=== PATIENT | male | born 1955 | race Caucasian/White ===

== ENCOUNTER 2018-10-22 10:48 | Emergency (ER) | payer MEDICARE, OTHER ==
[~2018-10-22] VITALS: Ht 172.7 cm; Wt 134.7 kg
[~2018-10-22 10:48] MED LIST: AMLO10 PO; ASCO500 PO; CAND32 PO; CARV25 PO; CARV6.25 PO; CEPH500 PO; CHOL10002 PO; CLIN300 PO; Cleocin HCl150 MG PO; DOXA4 PO; ESOM20 PO; Fiber Tabs625 MG PO; Glucosamine Co1 EAC1 PO; HYDR10 PO; HYDR1TAB94 PO; Hair, Skin & N1 EACH PO; IRBHYD150 PO; MAG PO; MAGOXI400 PO; MICARDIS PO; MULT50L PO; MULVIT PO; MUPI1NAS; Micardis Hct 81 EAC1 PO; NAPR500 PO; NAPR500EC PO; NEBI10 PO; PROBIOTIC1 EAC1 PO; PROBIOTIC1 EAC2 PO; Percocet 5-3251 EACH PO; Tylenol325 MG PO; VITAMIN D PO; Vitamin C100 M1 PO; Vitamin D400 UNI2 PO; Voltaren100 GM TOP; XARELTO10 MG PO; ZOLP10 PO; ZOLP12.5 PO
[2018-10-22] MEDS ORDERED: Doxazosin Mesyla8 MG PO (11:16)
[2018-10-22] MEDS ORDERED: ESOMEPRAZOLE MA40 MG PO (11:16)
[2018-10-22 13:03] LABS: BASOPHILS ABSOLUTE AUTO 0.02 K/mm3 (0.00-0.23); BASOPHILS PERCENT AUTO 0 % (0-2); EOSINOPHILS PERCENT AUTO 1 % (0-6); Hematocrit 34.9 % (37.0-53.0); IMMATURE GRAN ABSOLUTE AUTO 0.02 K/mm3 (0.00-0.10); IMMATURE GRAN PERCENT AUTO 0 % (0-1); LYMPHOCYTES ABSOLUTE AUTO 0.89 K/mm3 (0.84-5.20); LYMPHOCYTES PERCENT AUTO 10 % (21-46); MONOCYTES ABSOLUTE AUTO 1.02 K/mm3 (0.16-1.47); MONOCYTES PERCENT AUTO 11 % (4-13); Mean Corpuscular HGB 30.2 pg (26.0-34.0); Mean Corpuscular HGB Conc 34.4 g/dL (31.5-36.5); Mean Corpuscular Volume 88 fL (80-100); Mean Platelet Volume 10.2 fL (9.1-12.4); NEUTROPHILS PERCENT AUTO 77 % (41-73); Platelet Count 142 K/mm3 (150-400); RDW Coefficient Variation 13.1 % (11.7-14.2); RDW Standard Deviation 42.1 fL (35.1-46.3); Red Blood Cell Count 3.97 M/mm3 (4.30-5.90); White Blood Cell Count 9.05 K/mm3 (4.00-11.30)
[2018-10-22 13:28] LABS: Alanine Aminotransfer (ALT/SGP 32 U/L (12-78); Albumin, Blood 3.6 g/dL (3.4-5.0); Albumin/Globulin Ratio 1.2 (0.8-1.8); Alk Phos 58 U/L (50-136); Anion Gap 7 mmol/L (6-16); Aspartate Aminotrans (AST/SGOT 25 U/L (12-37); Bilirubin, Total 0.9 mg/dL (0.1-1.0); Blood Urea Nitrogen 12 mg/dL (8-24); Bun/Creatinine Ratio 15.4 (12.0-20.0); CO2, Blood 28 mmol/L (21-32); Calcium, Blood 8.5 mg/dL (8.5-10.1); Chloride, Blood 107 mmol/L (98-108); Creatinine, Blood 0.78 mg/dL (0.60-1.20); Glomerular Filtration Rate >60 (60-); Glucose, Blood 104 mg/dL (70-99); Potassium, Blood 3.7 mmol/L (3.5-5.5); Sodium, Blood 142 mmol/L (136-145); Total Protein, Blood 6.6 g/dL (6.4-8.2)
[2018-10-22] MEDS ORDERED: CEPH500 PO (15:30)
[2018-10-23] MEDS ORDERED: Norco 5-325 Ta1 EACH PO (10:24)
== END 2018-10-22 16:16 | disposition home or self-care (01) ==
LOC: ER 10:48
PROVIDERS: Physician Assistant
DX: L03.115 Cellulitis of right lower limb (principal); I10 Essential (primary) hypertension; E78.5 Hyperlipidemia, unspecified; K21.9 Gastro-esophageal reflux disease without esophagitis; Z79.899 Other long term (current) drug therapy
CPT/HCPCS: 36415; 80053; 85025; 93971; 96365; 99284-25; J0878

== ENCOUNTER 2018-10-24 10:04 | Day surgery (SDC) | payer MEDICARE, OTHER ==
[~2018-10-24 10:04] MED LIST changes: +Doxazosin Mesyla8 MG PO; +ESOMEPRAZOLE MA40 MG PO; +Norco 5-325 Ta1 EACH PO
== END 2018-10-24 11:30 | disposition home or self-care (01) ==
LOC: ATC 10:04
DX: L03.115 Cellulitis of right lower limb (principal); I10 Essential (primary) hypertension; E78.5 Hyperlipidemia, unspecified; K21.9 Gastro-esophageal reflux disease without esophagitis; G47.30 Sleep apnea, unspecified; E66.9 Obesity, unspecified; Z88.1 Allergy status to other antibiotic agents; Z79.899 Other long term (current) drug therapy
CPT/HCPCS: 96365; J0878

== ENCOUNTER 2018-10-26 10:06 | Day surgery (SDC) | payer MEDICARE, OTHER ==
[2018-10-27] MEDS ORDERED: Ferrous Sulfat324 MG PO (11:40)
== END 2018-10-26 10:54 | disposition home or self-care (01) ==
LOC: ATC 10:06
DX: L03.115 Cellulitis of right lower limb (principal); I10 Essential (primary) hypertension; K21.9 Gastro-esophageal reflux disease without esophagitis; G47.30 Sleep apnea, unspecified; E78.5 Hyperlipidemia, unspecified; N40.0 Benign prostatic hyperplasia without lower urinary tract symptoms; E66.9 Obesity, unspecified; Z68.41 Body mass index [BMI] 40.0-44.9, adult; Z79.899 Other long term (current) drug therapy; Z99.89 Dependence on other enabling machines and devices; Z88.2 Allergy status to sulfonamides; Z88.1 Allergy status to other antibiotic agents; Z88.8 Allergy status to other drugs, medicaments and biological substances
CPT/HCPCS: J0878

== ENCOUNTER 2018-10-27 11:08 | Day surgery (SDC) | payer MEDICARE, OTHER ==
[2018-10-27] MEDS ORDERED: Ferrous Sulfat324 MG PO (11:40)
== END 2018-10-27 12:12 | disposition home or self-care (01) ==
LOC: ATC 11:08
DX: L03.115 Cellulitis of right lower limb (principal); I10 Essential (primary) hypertension; K21.9 Gastro-esophageal reflux disease without esophagitis; G47.30 Sleep apnea, unspecified; E78.5 Hyperlipidemia, unspecified; Z88.1 Allergy status to other antibiotic agents; Z88.2 Allergy status to sulfonamides; Z79.899 Other long term (current) drug therapy
CPT/HCPCS: J0878

== ENCOUNTER 2018-10-28 11:07 | Day surgery (SDC) | payer MEDICARE, OTHER ==
[~2018-10-28 11:07] MED LIST changes: +Ferrous Sulfat324 MG PO
== END 2018-10-28 22:46 | disposition home or self-care (01) ==
LOC: ATC 11:07
DX: L03.115 Cellulitis of right lower limb (principal); I10 Essential (primary) hypertension; E78.5 Hyperlipidemia, unspecified; K21.9 Gastro-esophageal reflux disease without esophagitis; Z88.1 Allergy status to other antibiotic agents; Z88.2 Allergy status to sulfonamides; Z79.899 Other long term (current) drug therapy
CPT/HCPCS: J0878

== ENCOUNTER 2018-10-29 00:27 | Day surgery (SDC) | payer MEDICARE, OTHER | END 2018-10-29 12:35 | disposition home or self-care (01) | LOC: ATC 00:27 | DX: L03.115 Cellulitis of right lower limb (principal); I10 Essential (primary) hypertension; K21.9 Gastro-esophageal reflux disease without esophagitis; G47.30 Sleep apnea, unspecified; N40.0 Benign prostatic hyperplasia without lower urinary tract symptoms; E78.5 Hyperlipidemia, unspecified; E66.9 Obesity, unspecified; Z88.2 Allergy status to sulfonamides; Z88.1 Allergy status to other antibiotic agents; Z88.8 Allergy status to other drugs, medicaments and biological substances; Z79.899 Other long term (current) drug therapy | CPT/HCPCS: 96365; J0878 ==

== ENCOUNTER 2018-10-30 00:19 | Day surgery (SDC) | payer MEDICARE, OTHER | END 2018-10-30 11:38 | disposition home or self-care (01) | LOC: ATC 00:19 | DX: L03.115 Cellulitis of right lower limb (principal); I10 Essential (primary) hypertension; K21.9 Gastro-esophageal reflux disease without esophagitis; N40.0 Benign prostatic hyperplasia without lower urinary tract symptoms; E78.5 Hyperlipidemia, unspecified; G47.30 Sleep apnea, unspecified; E66.9 Obesity, unspecified; Z88.2 Allergy status to sulfonamides; Z88.1 Allergy status to other antibiotic agents; Z88.8 Allergy status to other drugs, medicaments and biological substances; Z79.899 Other long term (current) drug therapy | CPT/HCPCS: 96365; J0878 ==

== ENCOUNTER 2019-02-24 12:42 | Day surgery (SDC) | payer MEDICARE, OTHER ==
[~2019-02-24] VITALS: Ht 172.7 cm; Wt 138.1 kg
--- NOTE | 2019-02-24 13:38 | NUR ---
02/24/19 1338 Flaquito,Lorraine PT TO RESTROOM
== END 2019-02-24 14:46 | disposition home or self-care (01) ==
LOC: ORSCSDS 12:42
PROVIDERS: Internal Medicine Gastroenterology
PROC: 0DB68ZX Excision of Stomach, Via Natural or Artificial Opening Endoscopic, Diagnostic (ICD-10-PCS; principal; 2019-02-24 14:00)
PROC: 0DB58ZX Excision of Esophagus, Via Natural or Artificial Opening Endoscopic, Diagnostic (ICD-10-PCS; principal; 2019-02-24 14:00)
DX: K21.9 Gastro-esophageal reflux disease without esophagitis (principal); R10.13 Epigastric pain; R68.81 Early satiety; K44.9 Diaphragmatic hernia without obstruction or gangrene; E66.01 Morbid (severe) obesity due to excess calories; Z68.42 Body mass index [BMI] 45.0-49.9, adult; G47.33 Obstructive sleep apnea (adult) (pediatric); I10 Essential (primary) hypertension; Z79.899 Other long term (current) drug therapy
CPT/HCPCS: 87081; 88305; 88342; J2704; J7120

== ENCOUNTER 2019-06-24 06:08 | Day surgery (SDC) | payer MEDICARE, OTHER ==
[~2019-06-24] VITALS: Ht 175.3 cm; Wt 125.9 kg
--- NOTE | 2019-06-24 06:43 | NUR ---
History, Chart, Medications and Allergies reviewed before start of procedure. Patient confirms NPO status and agrees with scheduled surgery. Lungs clear T/O to Auscultation. Pre-Op teaching done. Pt verbalizes understanding. Patient States Post-Procedure ride home has been arranged. NO HEARING DEVICES, DENTURES, JEWELRY OR CONTACTS PRESENT AT ADMIT. PATIENT WILL DECIDE WHAT TO DO WITH HIS GLASSES BEFORE SURGERY.
[2019-06-24] MEDS ORDERED: Flonase 0.05% N16 GM (06:47)
[2019-06-24] MEDS ORDERED: TRAZ50 PO (06:47)
== END 2019-06-24 10:10 | disposition home or self-care (01) ==
LOC: ORSCMMR 06:08 → ORD 07:30 → ORSCMMR 10:10
DX: L72.3 Sebaceous cyst (principal); Z87.891 Personal history of nicotine dependence; I10 Essential (primary) hypertension; G47.33 Obstructive sleep apnea (adult) (pediatric); Z79.899 Other long term (current) drug therapy
CPT/HCPCS: 88304; A9270-GY; J0690; J1100; J2250; J2405; J2704; J3010; J7120

== ENCOUNTER → 2019-07-01 | Outpatient (CLI) | payer MEDICARE, OTHER ==
[~2019-07-01] MED LIST changes: +Flonase 0.05% N16 GM; +TRAZ50 PO
== END ==
LOC: LAB EV 14:45 → LAB SHORT 14:45
DX: G89.29 Other chronic pain (principal); Z79.899 Other long term (current) drug therapy
CPT/HCPCS: G0480

== ENCOUNTER → 2020-08-15 | Outpatient (CLI) | payer MEDICARE, BC, OTHER | END | disposition home or self-care (01) | LOC: LAB SHORT 07:50 → LAB 07:50 | DX: L82.1 Other seborrheic keratosis (principal) | CPT/HCPCS: 88305 ==

== ENCOUNTER → 2020-12-25 | Outpatient (CLI) | payer MEDICARE, BC | END | disposition home or self-care (01) | LOC: LAB 12:10 → LAB SHORT 12:10 | DX: D48.5 Neoplasm of uncertain behavior of skin (principal) | CPT/HCPCS: 88305 ==

== ENCOUNTER 2021-07-17 09:46 | Day surgery (SDC) | payer MEDICARE, BC ==
[~2021-07-17] VITALS: Ht 172.7 cm; Wt 131.3 kg
[~2021-07-17 09:46] MED LIST changes: +IBUP800 PO; +PRAMIPEXOLE PO
[2021-07-17] MEDS ORDERED: MINO2.5 PO (10:13)
[2021-07-17] MEDS ORDERED: AMBIEN10 MG PO (10:19)
--- NOTE | 2021-07-17 11:01 | NUR ---
History, Chart, Medications and Allergies reviewed before start of procedure. Patient confirms NPO status and agrees with scheduled surgery.
--- NOTE | 2021-07-17 11:55 | NUR ---
07/17/21 1155 Jenniffer Childers PATIENT ARRIVED TO OR WITH SKIN IRRITATION, REDNEES AND SKIN ABRASION ON LEFT LEG, NOTIFIED DOCTOR.
--- NOTE | 2021-07-17 14:54 | NUR ---
PT ARRIVED TO UNIT AT APROX 1645 FROM PACU. DRESSING TO R HIP C/D/I, POLAR PACK IN PLACE. PT REPORTS FULL SENSATION TO BLE. REPORTS PAIN TOLERABLE AT 5/10, MEDICATED IN PACU PER EMAR. PT GIVEN CLEAR LIQUIDS AND WILL ADVANCE TOLERATED.
--- NOTE | 2021-07-17 18:35 | NUR ---
SHIFT SUMMARY PT POD 0 R DC. AQUACEL DRESSING TO R HIP C/D/I. POLAR PACK, SCD, ORTIZ HOSE IN PLACE. PT VOIDING W/O DIFFICULTY, TOLERATING PO WITH NO N/V-SALINE LOCKED. PT WORKED WITH THERAPY AND UP TO CHAIR. PAIN TOLERABLE WITH PO PAIN MEDICATION. PLAN TO WORK WITH THERAPY TOMORROW AND DC IF CLEARS.
--- NOTE | 2021-07-18 04:24 | NUR ---
SUMMARY PT DENIES PAIN. PT HAS BEEN AMBULATORY WITH [facility] AND [facility]. PT HAD NO NOTED ISSUES. PT SLEPT WITH CPAP IN PLACE. PT CURRENTLY SLEEPING IN NO DISTRESS. CALL LIGHT IN REACH.
[2021-07-18 04:41] LABS: BASOPHILS PERCENT AUTO 0 % (0-2); EOSINOPHILS PERCENT AUTO 0 % (0-6); Hematocrit 29.4 % (37.0-53.0); Hemoglobin 10.2 g/dL (13.5-17.5); IMMATURE GRAN ABSOLUTE AUTO 0.06 K/mm3 (0.00-0.10); IMMATURE GRAN PERCENT AUTO 0 % (0-1); LYMPHOCYTES ABSOLUTE AUTO 0.68 K/mm3 (0.84-5.20); LYMPHOCYTES PERCENT AUTO 5 % (21-46); MONOCYTES PERCENT AUTO 7 % (4-13); Mean Corpuscular HGB 30.8 pg (26.0-34.0); Mean Corpuscular HGB Conc 34.7 g/dL (31.5-36.5); Mean Corpuscular Volume 89 fL (80-100); Mean Platelet Volume 10.3 fL (9.1-12.4); NEUTROPHILS ABSOLUTE AUTO 12.21 K/mm3 (1.96-9.15); NEUTROPHILS PERCENT AUTO 88 % (41-73); Platelet Count 157 K/mm3 (150-400); RDW Coefficient Variation 11.9 % (11.7-14.2); RDW Standard Deviation 38.8 fL (35.1-46.3); Red Blood Cell Count 3.31 M/mm3 (4.30-5.90); White Blood Cell Count 13.85 K/mm3 (4.00-11.30)
[2021-07-18 04:59] LABS: Anion Gap 6 mmol/L (6-16); Blood Urea Nitrogen 29 mg/dL (8-24); Bun/Creatinine Ratio 31.9 (12.0-20.0); CO2, Blood 26 mmol/L (21-32); Calcium, Blood 8.1 mg/dL (8.5-10.1); Chloride, Blood 105 mmol/L (98-108); Creatinine, Blood 0.91 mg/dL (0.60-1.20); Glomerular Filtration Rate >60 (60-); Glucose, Blood 142 mg/dL (70-99); Potassium, Blood 3.9 mmol/L (3.5-5.5); Sodium, Blood 137 mmol/L (136-145)
[2021-07-18] MEDS ORDERED: ASPI81CH PO (09:24)
[2021-07-18] MEDS ORDERED: Percocet 5-3251 EACH PO (09:25)
--- NOTE | 2021-07-18 13:27 | NUR ---
DISCHARGE: PACKET PRINTED AND PT EDUCATED. IV DC'D WNL, PT GIVEN EXTRA AQUACEL DRESSINGS. PT LEFT UNIT VIA WHEELCHAIR AT ABOUT 1050 WITH GILES NEWMAN
== END 2021-07-18 11:04 | disposition home or self-care (01) ==
LOC: ORSCMMR 09:46 → ORD 12:30 → SURS 14:34 → ORSCMMR 22:48 → SURS 22:48 → ORSCMMR 07-18 11:04
PROVIDERS: Orthopaedic Surgery
PROC: 0SR90JA Replacement of Right Hip Joint with Synthetic Substitute, Uncemented, Open Approach (ICD-10-PCS; principal; 2021-07-17 11:00)
DX: M16.11 Unilateral primary osteoarthritis, right hip (principal); M87.9 Osteonecrosis, unspecified; I10 Essential (primary) hypertension; G47.33 Obstructive sleep apnea (adult) (pediatric); Z87.891 Personal history of nicotine dependence; E66.01 Morbid (severe) obesity due to excess calories; Z68.41 Body mass index [BMI] 40.0-44.9, adult; Z79.899 Other long term (current) drug therapy
CPT/HCPCS: 36415; 72170; 80048; 85025; 97110; 97116; 97162; 97530; A9270; C1713; C1776; J0171; J0690; J0735; J1100; J1885; J2250; J2370; J2405; J2704; J2795; J3010; J3370; J7050; J7120

== ENCOUNTER → 2021-09-13 | Outpatient (CLI) | payer MEDICARE, BC ==
[~2021-09-13] MED LIST changes: +AMBIEN10 MG PO; +ASPI81CH PO; +MINO2.5 PO
== END | disposition home or self-care (01) ==
LOC: LAB 08:15 → LAB SHORT 08:15
DX: R30.9 Painful micturition, unspecified (principal)
CPT/HCPCS: 87077; 87086; 87186

== ENCOUNTER 2022-03-27 02:36 | Inpatient (IN) | payer MEDICARE, BC ==
[~2022-03-27] VITALS: Ht 172.7 cm; Wt 133.3 kg
[~2022-03-27 02:36] MED LIST changes: -Doxazosin Mesyla8 MG PO; +MICARDIS HCT 81 EACH PO; -Micardis Hct 81 EAC1 PO
[2022-03-27 02:52] LABS: BASOPHILS ABSOLUTE AUTO 0.02 K/mm3 (0.00-0.23); BASOPHILS PERCENT AUTO 0 % (0-2); EOSINOPHILS ABSOLUTE AUTO 0.08 K/mm3 (0.00-0.68); EOSINOPHILS PERCENT AUTO 1 % (0-6); Hematocrit 29.4 % (37.0-53.0); Hemoglobin 10.1 g/dL (13.5-17.5); IMMATURE GRAN ABSOLUTE AUTO 0.03 K/mm3 (0.00-0.10); IMMATURE GRAN PERCENT AUTO 0 % (0-1); LYMPHOCYTES ABSOLUTE AUTO 0.69 K/mm3 (0.84-5.20); LYMPHOCYTES PERCENT AUTO 7 % (21-46); MONOCYTES ABSOLUTE AUTO 0.55 K/mm3 (0.16-1.47); MONOCYTES PERCENT AUTO 6 % (4-13); Mean Corpuscular HGB 31.3 pg (26.0-34.0); Mean Corpuscular HGB Conc 34.4 g/dL (31.5-36.5); Mean Corpuscular Volume 91 fL (80-100); Mean Platelet Volume 10.8 fL (9.1-12.4); NEUTROPHILS ABSOLUTE AUTO 8.43 K/mm3 (1.96-9.15); NEUTROPHILS PERCENT AUTO 86 % (41-73); Platelet Count 181 K/mm3 (150-400); RDW Coefficient Variation 14.2 % (11.7-14.2); RDW Standard Deviation 47.5 fL (35.1-46.3); Red Blood Cell Count 3.23 M/mm3 (4.30-5.90)
[2022-03-27] MEDS ORDERED: ZINC15 PO (02:52)
[2022-03-27 03:32] LABS: Albumin, Blood 2.9 g/dL (3.4-5.0); Bilirubin, Total 6.8 mg/dL (0.1-1.0); Bun/Creatinine Ratio 44.9 (12.0-20.0); Calcium, Blood 8.7 mg/dL (8.5-10.1); Creatinine, Blood 0.62 mg/dL (0.60-1.20); Globulin, Blood 2.9 g/dL (2.2-4.0); Potassium, Blood 3.5 mmol/L (3.5-5.5); Total Protein, Blood 5.8 g/dL (6.4-8.2)
[2022-03-27 04:31] LABS: Bilirubin, Direct 5.8 mg/dL (0.0-0.3)
[2022-03-27 04:39] LABS: Source, Urine Clean Catch
[2022-03-27 05:00] LABS: Appearance, Urine Clear (Clear); Blood, Urine Neg (Neg); Color, Urine Amber (P-Yellow); Glucose Qualitative, Urine Neg (Neg); Ketones, Urine 2+ (Neg); Leukocyte Esterase, Urine 1+ (Neg); Nitrite, Urine Neg (Neg); Protein, Urine 1+ (Neg); Specific Gravity, Urine 1.015 (1.003-1.022); Urobilinogen, Urine 1+ (Normal)
[2022-03-27 05:11] LABS: Bilirubin, Urine 2+ (Neg)
[2022-03-27 05:16] LABS: Red Blood Cells, Urine 0-2 /hpf (0-2); Squamous Epithelial Cells Few /hpf (Few); White Blood Cells, Urine 0-2 /hpf (0-5)
[2022-03-27 05:17] LABS: Bacteria Rare /hpf; Mucus Light (0-Heavy)
[2022-03-27 05:43] LABS: International Normalized Ratio 1.09; Prothrombin Time Results 11.4 Sec (9.7-11.5)
[2022-03-27 10:54] LABS: Hematocrit 26.1 % (37.0-53.0); Hemoglobin 9.1 g/dL (13.5-17.5); Mean Corpuscular HGB 31.6 pg (26.0-34.0); Mean Corpuscular HGB Conc 34.9 g/dL (31.5-36.5); Mean Corpuscular Volume 91 fL (80-100); Mean Platelet Volume 10.8 fL (9.1-12.4); Platelet Count 177 K/mm3 (150-400); RDW Standard Deviation 46.2 fL (35.1-46.3); Red Blood Cell Count 2.88 M/mm3 (4.30-5.90); White Blood Cell Count 8.27 K/mm3 (4.00-11.30)
[2022-03-28 03:11] LABS: BASOPHILS ABSOLUTE AUTO 0.03 K/mm3 (0.00-0.23); BASOPHILS PERCENT AUTO 0 % (0-2); EOSINOPHILS ABSOLUTE AUTO 0.07 K/mm3 (0.00-0.68); EOSINOPHILS PERCENT AUTO 1 % (0-6); Hematocrit 24.2 % (37.0-53.0); Hemoglobin 8.4 g/dL (13.5-17.5); IMMATURE GRAN ABSOLUTE AUTO 0.02 K/mm3 (0.00-0.10); IMMATURE GRAN PERCENT AUTO 0 % (0-1); LYMPHOCYTES ABSOLUTE AUTO 1.42 K/mm3 (0.84-5.20); LYMPHOCYTES PERCENT AUTO 17 % (21-46); MONOCYTES PERCENT AUTO 8 % (4-13); Mean Corpuscular HGB 31.7 pg (26.0-34.0); Mean Corpuscular HGB Conc 34.7 g/dL (31.5-36.5); Mean Corpuscular Volume 91 fL (80-100); Mean Platelet Volume 10.7 fL (9.1-12.4); NEUTROPHILS PERCENT AUTO 74 % (41-73); Platelet Count 179 K/mm3 (150-400); RDW Coefficient Variation 14.6 % (11.7-14.2); RDW Standard Deviation 48.9 fL (35.1-46.3); Red Blood Cell Count 2.65 M/mm3 (4.30-5.90); White Blood Cell Count 8.44 K/mm3 (4.00-11.30)
[2022-03-28 03:30] LABS: Albumin/Globulin Ratio 1.1 (0.8-1.8); Bilirubin, Total 6.7 mg/dL (0.1-1.0); Bun/Creatinine Ratio 34.2 (12.0-20.0); Creatinine, Blood 0.7 mg/dL (0.60-1.20); Globulin, Blood 2.7 g/dL (2.2-4.0); Potassium, Blood 3.3 mmol/L (3.5-5.5); Total Protein, Blood 5.7 g/dL (6.4-8.2)
--- NOTE | 2022-03-28 06:37 | NUR ---
CUSTOMER QUALITY SPECIALIST SUMMARY CARY SLEPT REASONABLY WELL UNTIL AROUND 0300 WHEN HE AWOKE WITH WORSENING RESTLESS LEG. HE REQUESTED A NORCO 10/325. WHICH HE CAN HAVE EVERY 5 HOURS PRN (JUST LIKE HOME DOSING PER PATIENTS MEDICATION LIST IN CHART.) HE HAS BEEN NPO SINCE 2300. HE WAS ALLOWED TO HAVE H2O HE WOULDN'T BE ON THE SCHEDULE FOR PLACEMENT OF A BILIARY DRAIN UNTIL THIS MORNING. PATIENT IS ALERT AND ORIENTED X4, OOB INDEPENDENTLY IN ROOM, INFACT TOOK A SHOWER LAST NIGHT WITHOUT DIFFICULTY. SURGICAL PAPERS ARE ON CHART, JUST WAITING FOR AN ORDER TO CONSENT.
[2022-03-28 10:21] LABS: Hematocrit 26.2 % (37.0-53.0); Hemoglobin 8.8 g/dL (13.5-17.5)
--- NOTE | 2022-03-28 16:00 | NUR ---
SHIFT SUMMARY PT ALERT AND ORIENTED, CALLS APPROPRIATELY. PT TO US FOR BILIARY DRAIN PLACEMENT TODAY, TOLERATED. PT C/O PAIN TO SITE, TOLERABLE AT THIS TIME. PT REMAINS ON RA, SPO2 > 92%. NS INFUSING @ 75ML/HR. NO OTHER NEEDS VOICED AT THIS TIME. WILL CONTINUE TO MONITOR. CALL LIGHT WITHIN REACH.
[2022-03-28 18:07] LABS: Hematocrit 28.1 % (37.0-53.0); Hemoglobin 9.1 g/dL (13.5-17.5)
[2022-03-29 03:20] LABS: Hematocrit 28.3 % (37.0-53.0); Hemoglobin 9.8 g/dL (13.5-17.5)
--- NOTE | 2022-03-29 03:50 | NUR ---
Pt A/Ox4 and call light appropriate. This shift pt had poor pain control, oxy was given Q4, MD called for severe break through pain. Orders placed for PRN fetnayl Q4- this was given multiple times. Pt noted even with additional pain medications his pain was still elevated. Pain was noted to be in his RUQ. Biliary drain remains patent. color has ranged from yellow-dark brown and turbid. The drain has had moderate output. Skin around drain site looks intact. Pt had no c/o nausea, bowel sounds hypoactive. Placed on an ADA regular diet. overnight pt utilized home CPAP. VSS this shift.
--- NOTE | 2022-03-29 07:42 | NUR ---
TACHYCARDIA-PHYSICIAN COMMUNICATION FIRST CALL TO DR. PATEL, NO ANSWER AND NO WAY TO LEAVE MESSAGE. SECOND CALL, NOTIFIED DR. PATEL OF TACHYCARDIA HR 144. ALSO DISCUSSED THE POSSIBILITY OF BOWEL PERF THOUGH CT SCAN SAYS OTHERWISE. BILIARY DRAINAGE BAG HAS BRIGHT YELLOW DRAIN AND SEDIMENTS CONCERNING FOR BOWEL PERF. YESTERDAY'S DRAIN WAS DARK GREEN/BROWN CONSISTENT WITH PANCREATIC FLUIDS. ADVISED FOR THIS RN TO NOTIFY DR. DE LEON HE IS THE ONE WHO PLACED DRAIN. ORDER TO HOLD LOVENOX ANDN KEEP PATIENT NPO. UTILIZE SCD INSTEAD. NO NEW ORDER FOR TACHYCARDIA.
--- NOTE | 2022-03-29 08:21 | NUR ---
RECEIVED A CALL FROM RADIOLOGY DR. HUNG RE POSSIBLE PNEUMOTHORAX. DISCUSSED WITH DR. PATEL, STAT 2V CHEST XR ORDERED.
--- NOTE | 2022-03-29 09:20 | NUR ---
PHYSICIAN COMMUNICATION SPOKE WITH DR. PATEL IN PERSON. RECEIVED V.O. FOR DILAUDID 0.5MG IV Q2H PRN, START FULL LIQUID DIET, D/C NS @ 75, AND D/C FENTANYL. DR. PATEL SPOKE WITH DR. DE LEON OVER THE PHONE, PER DISCUSSION WITH THIS RN PRESENT, CONTINUE TO MONITOR SMALL PNEUMOTHORAX. DR. PATEL AND DR. DE LEON IS AWARE PATIENT BECOMES TACHY WITH ACTIVITY.
[2022-03-29 11:22] LABS: Albumin, Blood 3.4 g/dL (3.4-5.0); Bilirubin, Total 4.5 mg/dL (0.1-1.0); Bun/Creatinine Ratio 42.5 (12.0-20.0); Calcium, Blood 8.9 mg/dL (8.5-10.1); Creatinine, Blood 0.57 mg/dL (0.60-1.20); Globulin, Blood 3.5 g/dL (2.2-4.0); Potassium, Blood 3.3 mmol/L (3.5-5.5); Total Protein, Blood 6.9 g/dL (6.4-8.2)
--- NOTE | 2022-03-29 18:55 | NUR ---
Shift Summary A/O, independent in room. Intially, biliary drain was producing yellow output but gradually returned to dark green/brown output. Dilaudid given for 8/10 pain with oxy with good relief. On Full liquid diet but preferring clear ensure. Calling appropriately.
[2022-03-30 09:14] LABS: BASOPHILS ABSOLUTE AUTO 0.02 K/mm3 (0.00-0.23); BASOPHILS PERCENT AUTO 0 % (0-2); EOSINOPHILS PERCENT AUTO 1 % (0-6); Hematocrit 27.9 % (37.0-53.0); Hemoglobin 9.3 g/dL (13.5-17.5); IMMATURE GRAN ABSOLUTE AUTO 0.05 K/mm3 (0.00-0.10); IMMATURE GRAN PERCENT AUTO 0 % (0-1); LYMPHOCYTES ABSOLUTE AUTO 1.09 K/mm3 (0.84-5.20); LYMPHOCYTES PERCENT AUTO 9 % (21-46); MONOCYTES ABSOLUTE AUTO 0.77 K/mm3 (0.16-1.47); MONOCYTES PERCENT AUTO 6 % (4-13); Mean Corpuscular HGB Conc 33.3 g/dL (31.5-36.5); Mean Corpuscular Volume 93 fL (80-100); Mean Platelet Volume 11.3 fL (9.1-12.4); NEUTROPHILS ABSOLUTE AUTO 10.71 K/mm3 (1.96-9.15); NEUTROPHILS PERCENT AUTO 84 % (41-73); Platelet Count 224 K/mm3 (150-400); RDW Coefficient Variation 14.6 % (11.7-14.2); RDW Standard Deviation 49.3 fL (35.1-46.3); White Blood Cell Count 12.74 K/mm3 (4.00-11.30)
[2022-03-30 09:43] LABS: Albumin, Blood 3.2 g/dL (3.4-5.0); Bun/Creatinine Ratio 32.8 (12.0-20.0); Calcium, Blood 8.8 mg/dL (8.5-10.1); Creatinine, Blood 0.64 mg/dL (0.60-1.20); Globulin, Blood 3.3 g/dL (2.2-4.0); Potassium, Blood 3.1 mmol/L (3.5-5.5); Total Protein, Blood 6.5 g/dL (6.4-8.2)
--- NOTE | 2022-03-30 18:39 | NUR ---
SHIFT SUMMARY; PATIENT ASKS OFTEN FOR PAIN MEDICATION. HIS DILAUDID WAS INCREASED BY TO 1MG IV. HE IS ALSO RECEIVING OXYCODONE PO. HE IS INDEPENDANT IN HIS ROOM. HE EMPTIES HIS OWN BILIARY BAG. IT VARIES IN COLOR FOR DISCHARGE FROM LIGHT YELLOW TO DARK GREEN AT TIME. PER PATIENT HE HAS INCREASED PAIN WITH MOVEMENT. VITAL SIGNS ARE SOFT WITH B/P IN THE LOW 100'S SYSTOLIC AND HR 65. HE IS AO X 4 AND IS COOPERATIVE WITH CARE. HIS LUNGS ARE CLEAR BUT DIM.
--- NOTE | 2022-03-31 04:29 | NUR ---
SHIT SUMMARY Pt A/Ox4 and call light appropriate. overnight pt had moderate output in his bili drain. pt reported severe pain in his RUQ throughout the shift and utilized PRN dilaudid q2 and one dose of oxy 5mg. pt stated it offered some relief but not much. Bowel sounds remain hypoactive, although no c/o nausea and he is passing gas. Vitals remained stable overnight.
[2022-03-31 09:38] LABS: BASOPHILS ABSOLUTE AUTO 0.03 K/mm3 (0.00-0.23); BASOPHILS PERCENT AUTO 0 % (0-2); EOSINOPHILS ABSOLUTE AUTO 0.23 K/mm3 (0.00-0.68); EOSINOPHILS PERCENT AUTO 2 % (0-6); Hematocrit 29.1 % (37.0-53.0); Hemoglobin 9.4 g/dL (13.5-17.5); IMMATURE GRAN ABSOLUTE AUTO 0.06 K/mm3 (0.00-0.10); IMMATURE GRAN PERCENT AUTO 1 % (0-1); LYMPHOCYTES ABSOLUTE AUTO 1.04 K/mm3 (0.84-5.20); LYMPHOCYTES PERCENT AUTO 9 % (21-46); MONOCYTES ABSOLUTE AUTO 0.78 K/mm3 (0.16-1.47); MONOCYTES PERCENT AUTO 7 % (4-13); Mean Corpuscular HGB 30.4 pg (26.0-34.0); Mean Corpuscular HGB Conc 32.3 g/dL (31.5-36.5); Mean Corpuscular Volume 94 fL (80-100); Mean Platelet Volume 11.3 fL (9.1-12.4); NEUTROPHILS ABSOLUTE AUTO 9.39 K/mm3 (1.96-9.15); NEUTROPHILS PERCENT AUTO 81 % (41-73); Platelet Count 238 K/mm3 (150-400); RDW Coefficient Variation 14.9 % (11.7-14.2); RDW Standard Deviation 50.3 fL (35.1-46.3); Red Blood Cell Count 3.09 M/mm3 (4.30-5.90); White Blood Cell Count 11.53 K/mm3 (4.00-11.30)
[2022-03-31 10:02] LABS: Albumin/Globulin Ratio 0.8 (0.8-1.8); Bilirubin, Total 3.7 mg/dL (0.1-1.0); Calcium, Blood 8.7 mg/dL (8.5-10.1); Creatinine, Blood 0.61 mg/dL (0.60-1.20); Globulin, Blood 3.6 g/dL (2.2-4.0); Potassium, Blood 3.2 mmol/L (3.5-5.5); Total Protein, Blood 6.6 g/dL (6.4-8.2)
--- NOTE | 2022-03-31 17:55 | NUR ---
SHIFT SUMMARY; PATIENT HAD LARGE AMOUNT OF BUTTERSCOTCH COLORED DRAINAGE FROM BILIARY BAG TODAY. IT IS THICK BUT DOES PASS EASILY INTO URINAL FOR DRAINAGE. HE IS AO X 4 TODAY. PATIENT REQUIRES 2 DOSES OF OXYCODONE AND DILAUDID 1MG IV Q 2 HOURS ALL DAY. HE SAYS IT TAKES THE EDGE OFF BUT IS VERY PAINFULL AT THE 2 HOUR SYD AND HE IS UNABLE TO REST. PER PATIENT IS NOW ON GUT REST. NPO. NOT EVEN WATER. HE WILL NEED HIS DRAINAGE TO BE CLEAR FROM HIS BILIARY TUBE TO HAVE THE STENT PLACEMENT. HIS VITAL SIGNS ARE STABLE AT 124/64 PULSE IS IN THE 70'S. HE IS NOT FEBRILE. WILL CONTINUE TO MONITOR THIS PATIENT CLOSELY UNTIL HAND OFF AND REPORT AT SHIFT CHANGE.
--- NOTE | 2022-04-01 06:38 | NUR ---
SHIFT SUMMARY:PATIENT CONTINUES TO REPORT RUQ PAIN. TRIED TO USE ONLY 0.5ML OF DILAUDID AND TOOK ONE DOSE OF PO OXY AT HS. PATIENT REPORTS POOR EFFECT FROM OXY. PATIENT THEN REQUEST DILAUDID 1MG. PATIENT HAS BEEN NPO FOR PROCEEDURE TODAY.
[2022-04-01 08:47] LABS: BASOPHILS ABSOLUTE AUTO 0.04 K/mm3 (0.00-0.23); BASOPHILS PERCENT AUTO 0 % (0-2); EOSINOPHILS ABSOLUTE AUTO 0.26 K/mm3 (0.00-0.68); EOSINOPHILS PERCENT AUTO 3 % (0-6); Hematocrit 27.6 % (37.0-53.0); Hemoglobin 9.2 g/dL (13.5-17.5); IMMATURE GRAN ABSOLUTE AUTO 0.03 K/mm3 (0.00-0.10); IMMATURE GRAN PERCENT AUTO 0 % (0-1); LYMPHOCYTES PERCENT AUTO 11 % (21-46); MONOCYTES ABSOLUTE AUTO 0.86 K/mm3 (0.16-1.47); MONOCYTES PERCENT AUTO 9 % (4-13); Mean Corpuscular HGB 31.2 pg (26.0-34.0); Mean Corpuscular HGB Conc 33.3 g/dL (31.5-36.5); Mean Corpuscular Volume 94 fL (80-100); NEUTROPHILS ABSOLUTE AUTO 7.21 K/mm3 (1.96-9.15); NEUTROPHILS PERCENT AUTO 77 % (41-73); Platelet Count 252 K/mm3 (150-400); RDW Coefficient Variation 14.4 % (11.7-14.2); RDW Standard Deviation 48.5 fL (35.1-46.3); Red Blood Cell Count 2.95 M/mm3 (4.30-5.90)
[2022-04-01 09:14] LABS: Albumin, Blood 2.9 g/dL (3.4-5.0); Albumin/Globulin Ratio 0.8 (0.8-1.8); Bilirubin, Total 3.7 mg/dL (0.1-1.0); Calcium, Blood 8.8 mg/dL (8.5-10.1); Creatinine, Blood 0.65 mg/dL (0.60-1.20); Globulin, Blood 3.6 g/dL (2.2-4.0); Potassium, Blood 3.4 mmol/L (3.5-5.5); Total Protein, Blood 6.5 g/dL (6.4-8.2)
--- NOTE | 2022-04-01 17:35 | NUR ---
SHIFT SUMMARY NO ACUTE CHANGES DURING SHIFT. PT ALERT AND ORIENTED, CALLS APPROPRIATELY. PT PENDING STENT PLACEMENT, CONTACTED IR, WAS INFORMED IT WASNT HAPPENING TODAY. PT BACK ON FULL LIQUIDS TIL MIDNIGHT. BILIARY DRAIN CONTINUES DRAINING BRIGHT YELLOW, CONTINUED PAIN TO R ABD. PT MEDICATED WITH PRN MEDS ALMOST EVERY 2 HOURS. WILL CONTINUE TO MONITOR. CALL LIGHT WITHIN REACH.
--- NOTE | 2022-04-02 04:57 | NUR ---
Summary: Patient did well overnight. No acute events. Medicated for pain per emar. Patient did not want oral meds only IV dilaudid. NPO after midnight. IV abx given plan for stent placement today. Biliary drain patent with eldon output. Patient independent in room. VSS. CPAP machine worn while sleeping.
[2022-04-02 05:51] LABS: BASOPHILS ABSOLUTE AUTO 0.03 K/mm3 (0.00-0.23); BASOPHILS PERCENT AUTO 0 % (0-2); EOSINOPHILS ABSOLUTE AUTO 0.28 K/mm3 (0.00-0.68); EOSINOPHILS PERCENT AUTO 3 % (0-6); Hematocrit 29.6 % (37.0-53.0); Hemoglobin 9.7 g/dL (13.5-17.5); IMMATURE GRAN ABSOLUTE AUTO 0.03 K/mm3 (0.00-0.10); IMMATURE GRAN PERCENT AUTO 0 % (0-1); LYMPHOCYTES ABSOLUTE AUTO 1.22 K/mm3 (0.84-5.20); LYMPHOCYTES PERCENT AUTO 13 % (21-46); MONOCYTES ABSOLUTE AUTO 0.88 K/mm3 (0.16-1.47); MONOCYTES PERCENT AUTO 9 % (4-13); Mean Corpuscular HGB 30.8 pg (26.0-34.0); Mean Corpuscular HGB Conc 32.8 g/dL (31.5-36.5); Mean Corpuscular Volume 94 fL (80-100); NEUTROPHILS ABSOLUTE AUTO 7.14 K/mm3 (1.96-9.15); NEUTROPHILS PERCENT AUTO 75 % (41-73); Platelet Count 298 K/mm3 (150-400); RDW Coefficient Variation 14.4 % (11.7-14.2); RDW Standard Deviation 48.9 fL (35.1-46.3); Red Blood Cell Count 3.15 M/mm3 (4.30-5.90); White Blood Cell Count 9.58 K/mm3 (4.00-11.30)
[2022-04-02 06:15] LABS: Albumin, Blood 2.8 g/dL (3.4-5.0); Albumin/Globulin Ratio 0.8 (0.8-1.8); Bilirubin, Total 3.6 mg/dL (0.1-1.0); Bun/Creatinine Ratio 17.8 (12.0-20.0); Calcium, Blood 8.7 mg/dL (8.5-10.1); Creatinine, Blood 0.67 mg/dL (0.60-1.20); Globulin, Blood 3.7 g/dL (2.2-4.0); Potassium, Blood 3.3 mmol/L (3.5-5.5); Total Protein, Blood 6.5 g/dL (6.4-8.2)
--- NOTE | 2022-04-02 14:59 | NUR ---
No procedure today Called and confirmed with [facility] @ ext [phone] that patient will not be having stent placed in biliary duct today. Order for patient to have clear liquid diet and initiate NPO at midnight for procedure tomorrow instead.
--- NOTE | 2022-04-02 17:03 | NUR ---
Shift Summary A/O, medicate round the clock for 7-8/10 pain with good effect. Appears to worsen with movement per patient state. Independent. Empyting own biliary drain, staff charts what is emptied. Plan for stent placement tomorrow, NPO at midnight. Patient is back on clear liquid diet for now. No acute distress.
--- NOTE | 2022-04-03 04:04 | NUR ---
SHIFT SUMMARY PT CONTINUES TO HAVE PAIN AT BILIARY DRAIN SITE. PT IS BEING MEDICATED WITH IV PAIN MEDICATION ABOUT EVERY 2-3 HOURS. PT IS SUPPOSED TO HAVE A BILIARY STENT PLACED TODAY BY DR. DE LEON. PT IS HOPING THAT IT WILL GET DONE TODAY. PT USES CPAP FOR SLEEPING. BILIARY DRAIN IS DRAINING ORAGE COLORED FLUID. PT HAS NO COMPLAINTS AT THIS CURRENT TIME. CALL LIGHT IS WITHIN HIS REACH. PT HAS BEEN NPO SINCE MIDNIGHT.
[2022-04-03 05:58] LABS: BASOPHILS ABSOLUTE AUTO 0.02 K/mm3 (0.00-0.23); BASOPHILS PERCENT AUTO 0 % (0-2); EOSINOPHILS ABSOLUTE AUTO 0.29 K/mm3 (0.00-0.68); EOSINOPHILS PERCENT AUTO 3 % (0-6); Hematocrit 28.1 % (37.0-53.0); Hemoglobin 9.3 g/dL (13.5-17.5); IMMATURE GRAN ABSOLUTE AUTO 0.03 K/mm3 (0.00-0.10); IMMATURE GRAN PERCENT AUTO 0 % (0-1); LYMPHOCYTES ABSOLUTE AUTO 1.08 K/mm3 (0.84-5.20); LYMPHOCYTES PERCENT AUTO 13 % (21-46); MONOCYTES ABSOLUTE AUTO 0.74 K/mm3 (0.16-1.47); MONOCYTES PERCENT AUTO 9 % (4-13); Mean Corpuscular HGB 30.9 pg (26.0-34.0); Mean Corpuscular HGB Conc 33.1 g/dL (31.5-36.5); Mean Corpuscular Volume 93 fL (80-100); Mean Platelet Volume 11.2 fL (9.1-12.4); NEUTROPHILS ABSOLUTE AUTO 6.32 K/mm3 (1.96-9.15); NEUTROPHILS PERCENT AUTO 75 % (41-73); Platelet Count 284 K/mm3 (150-400); RDW Coefficient Variation 14.1 % (11.7-14.2); RDW Standard Deviation 47.8 fL (35.1-46.3); Red Blood Cell Count 3.01 M/mm3 (4.30-5.90); White Blood Cell Count 8.48 K/mm3 (4.00-11.30)
[2022-04-03 06:26] LABS: Albumin, Blood 2.7 g/dL (3.4-5.0); Albumin/Globulin Ratio 0.8 (0.8-1.8); Bilirubin, Total 3.2 mg/dL (0.1-1.0); Bun/Creatinine Ratio 17.5 (12.0-20.0); Creatinine, Blood 0.69 mg/dL (0.60-1.20); Globulin, Blood 3.6 g/dL (2.2-4.0); Potassium, Blood 3.1 mmol/L (3.5-5.5); Total Protein, Blood 6.3 g/dL (6.4-8.2)
--- NOTE | 2022-04-03 17:25 | NUR ---
Shift Summary Medicating for pain PRN, good effect provided. Still waiting on stent placement. Procedure pushed out, possibly tomorrow. Back on clear liquid diet and NPO after midnight. No acute changes.
--- NOTE | 2022-04-04 04:15 | NUR ---
SHIFT SUMMARY PT CONTINUES TO ASK FOR PAIN MEDICATION CLOSE TO EVERY 2 HOURS. PT PAINFUL IN R RIB AREA, WHERE HIS BILIARY DRAIN IS LOCATED. PT WAS SUPPOSED TO GET BILIARY STENT YESTERDAY, BUT WAS POSTPONED. PT SUPPOSED TO GO FOR THE SURGERY TODAY. PT HAS BEEN NPO SINCE MIDNIGHT. NO ACUTE CHANGES TO PT CONDITION. CALL LIGHT IS WITHIN HIS REACH.
[2022-04-04 05:44] LABS: BASOPHILS ABSOLUTE AUTO 0.03 K/mm3 (0.00-0.23); BASOPHILS PERCENT AUTO 0 % (0-2); EOSINOPHILS PERCENT AUTO 4 % (0-6); Hematocrit 32.4 % (37.0-53.0); Hemoglobin 10.7 g/dL (13.5-17.5); IMMATURE GRAN ABSOLUTE AUTO 0.03 K/mm3 (0.00-0.10); IMMATURE GRAN PERCENT AUTO 0 % (0-1); LYMPHOCYTES ABSOLUTE AUTO 1.52 K/mm3 (0.84-5.20); LYMPHOCYTES PERCENT AUTO 18 % (21-46); MONOCYTES ABSOLUTE AUTO 0.54 K/mm3 (0.16-1.47); MONOCYTES PERCENT AUTO 6 % (4-13); Mean Corpuscular HGB 30.8 pg (26.0-34.0); Mean Corpuscular Volume 93 fL (80-100); Mean Platelet Volume 10.8 fL (9.1-12.4); NEUTROPHILS ABSOLUTE AUTO 6.21 K/mm3 (1.96-9.15); NEUTROPHILS PERCENT AUTO 72 % (41-73); Platelet Count 379 K/mm3 (150-400); RDW Coefficient Variation 13.9 % (11.7-14.2); RDW Standard Deviation 46.9 fL (35.1-46.3); Red Blood Cell Count 3.47 M/mm3 (4.30-5.90); White Blood Cell Count 8.63 K/mm3 (4.00-11.30)
[2022-04-04 06:19] LABS: Albumin, Blood 3.1 g/dL (3.4-5.0); Albumin/Globulin Ratio 0.8 (0.8-1.8); Bilirubin, Total 3.3 mg/dL (0.1-1.0); Bun/Creatinine Ratio 11.8 (12.0-20.0); Calcium, Blood 9.1 mg/dL (8.5-10.1); Creatinine, Blood 0.68 mg/dL (0.60-1.20); Globulin, Blood 3.9 g/dL (2.2-4.0); Potassium, Blood 3.8 mmol/L (3.5-5.5)
--- NOTE | 2022-04-04 18:04 | NUR ---
PATIENT IS ALERT AND ORIENTED AND COOPERATIVE WITH CARE. HE HAD A BILIARY STENT PLACED THIS MORNING. HIS PAIN FOLLOWING THE STENT PLACEMENT WAS STILL 10/10 AND MEDICATED PER EMAR. HIS PAIN WAS WELL MANAGED THIS AFTERNOON AND THE PATIENT WAS ABLE TO GET SOME SLEEP. ON RA. DRAIN IS CLAMPED AT THIS TIME. PATIENT IS INDEPENDENT IN HIS ROOM. HIS URINE IS DARK CHARLEY. WILL GIVE REPORT TO ONCOMING RN.
--- NOTE | 2022-04-05 04:38 | NUR ---
NO CHANGES OVERNIGHT. RIGHT LATERAL ABDOMINAL DRAIN WITH STOPCOCK IN PLACE NO SWELLING, REDNESS, DRAINAGE OR ODOR NOTED. PATIENT STILL EXTREMELY PAINFUL CALLIING AT REGULAR INTERVALS FOR PAIN. IV DILAUDID GIVEN EVERY 2-3 HOURS. OXYCODONE GIVEN ONCE AN ADJUNCT WHICH DID NOT APPEAR TO MAKE A DIFFERENCE. STATED VERY FEW VISITORS. HOME SICK HERSELF.
[2022-04-05 05:44] LABS: BASOPHILS ABSOLUTE AUTO 0.02 K/mm3 (0.00-0.23); BASOPHILS PERCENT AUTO 0 % (0-2); EOSINOPHILS ABSOLUTE AUTO 0.13 K/mm3 (0.00-0.68); EOSINOPHILS PERCENT AUTO 1 % (0-6); Hematocrit 32.1 % (37.0-53.0); Hemoglobin 10.2 g/dL (13.5-17.5); IMMATURE GRAN ABSOLUTE AUTO 0.04 K/mm3 (0.00-0.10); IMMATURE GRAN PERCENT AUTO 0 % (0-1); LYMPHOCYTES ABSOLUTE AUTO 0.81 K/mm3 (0.84-5.20); LYMPHOCYTES PERCENT AUTO 8 % (21-46); MONOCYTES ABSOLUTE AUTO 0.78 K/mm3 (0.16-1.47); MONOCYTES PERCENT AUTO 8 % (4-13); Mean Corpuscular HGB 29.7 pg (26.0-34.0); Mean Corpuscular HGB Conc 31.8 g/dL (31.5-36.5); Mean Corpuscular Volume 94 fL (80-100); Mean Platelet Volume 10.5 fL (9.1-12.4); NEUTROPHILS ABSOLUTE AUTO 8.23 K/mm3 (1.96-9.15); NEUTROPHILS PERCENT AUTO 82 % (41-73); Platelet Count 317 K/mm3 (150-400); RDW Coefficient Variation 13.5 % (11.7-14.2); RDW Standard Deviation 46.1 fL (35.1-46.3); Red Blood Cell Count 3.43 M/mm3 (4.30-5.90); White Blood Cell Count 10.01 K/mm3 (4.00-11.30)
[2022-04-05 06:15] LABS: Albumin, Blood 2.7 g/dL (3.4-5.0); Albumin/Globulin Ratio 0.8 (0.8-1.8); Bilirubin, Total 3.1 mg/dL (0.1-1.0); Bun/Creatinine Ratio 13.5 (12.0-20.0); Calcium, Blood 8.7 mg/dL (8.5-10.1); Creatinine, Blood 0.67 mg/dL (0.60-1.20); Globulin, Blood 3.5 g/dL (2.2-4.0); Potassium, Blood 4.2 mmol/L (3.5-5.5); Total Protein, Blood 6.2 g/dL (6.4-8.2)
--- NOTE | 2022-04-05 18:05 | NUR ---
ALERT AND ORIENTED, POSSIBLE DISCHARGE FRIDAY OR FRIDAY, PATIENT REPORTS ADEQUATE PAIN CONTROL WITH PO OXYCODONE AND DILAUDID ONLY FOR BREAK THROUGH PAIN. NO ACUTE CHANGES. INDEPEDENT IN ROOM, ADVANCED TO A REGULAR DIET, NO NV, CALL LIGHT WITH IN REACH, WILL RELAY TO PM RN
--- NOTE | 2022-04-06 03:46 | NUR ---
SHIFT SUMMARY NO OVERNIGHT EVENTS. PAIN MODERATLY CONTROLED WITH OXYCODONE Q 4 HOURS. GIVEN X1 DOSE IV DILADID FOR BREAK THROUGH PAIN. R BILIARY DRAM CLAMPED, DRSG C/D/I. PT INDEPENDENT IN ROOM. USES CALL LIGHT. WILL CONTINUE TO MONITOR.
[2022-04-06 05:29] LABS: BASOPHILS ABSOLUTE AUTO 0.03 K/mm3 (0.00-0.23); BASOPHILS PERCENT AUTO 0 % (0-2); EOSINOPHILS ABSOLUTE AUTO 0.22 K/mm3 (0.00-0.68); EOSINOPHILS PERCENT AUTO 2 % (0-6); Hematocrit 31.6 % (37.0-53.0); Hemoglobin 10.3 g/dL (13.5-17.5); IMMATURE GRAN ABSOLUTE AUTO 0.03 K/mm3 (0.00-0.10); IMMATURE GRAN PERCENT AUTO 0 % (0-1); LYMPHOCYTES ABSOLUTE AUTO 1.11 K/mm3 (0.84-5.20); LYMPHOCYTES PERCENT AUTO 11 % (21-46); MONOCYTES ABSOLUTE AUTO 0.85 K/mm3 (0.16-1.47); MONOCYTES PERCENT AUTO 9 % (4-13); Mean Corpuscular HGB 30.6 pg (26.0-34.0); Mean Corpuscular HGB Conc 32.6 g/dL (31.5-36.5); Mean Corpuscular Volume 94 fL (80-100); Mean Platelet Volume 10.7 fL (9.1-12.4); NEUTROPHILS ABSOLUTE AUTO 7.52 K/mm3 (1.96-9.15); NEUTROPHILS PERCENT AUTO 77 % (41-73); Platelet Count 323 K/mm3 (150-400); RDW Coefficient Variation 13.5 % (11.7-14.2); RDW Standard Deviation 46.3 fL (35.1-46.3); Red Blood Cell Count 3.37 M/mm3 (4.30-5.90); White Blood Cell Count 9.76 K/mm3 (4.00-11.30)
[2022-04-06 06:15] LABS: Albumin, Blood 2.8 g/dL (3.4-5.0); Albumin/Globulin Ratio 0.8 (0.8-1.8); Bilirubin, Total 2.3 mg/dL (0.1-1.0); Calcium, Blood 8.9 mg/dL (8.5-10.1); Creatinine, Blood 0.61 mg/dL (0.60-1.20); Globulin, Blood 3.7 g/dL (2.2-4.0); Magnesium, Blood 2.6 mg/dL (1.6-2.4); Potassium, Blood 3.7 mmol/L (3.5-5.5); Total Protein, Blood 6.5 g/dL (6.4-8.2)
--- NOTE | 2022-04-06 16:49 | NUR ---
PT AOX4 AND COOPERATIVE OF CARE. PT INDEPENDENT IN ROOM AND CAN CALL APPROPRIATELY. PT TREATED FOR FLANK AND ABDOMINAL PAIN PER EMAR. BILLIARY DRAIN DRESSING INTACT NO REDNESS NOTED. CALL LIGHT WITHIN REACH WILL CONTINUE TO MONITOR.
--- NOTE | 2022-04-07 04:36 | NUR ---
NIGHTSHIFT SUMMARY Patient independent in room. Continues to report moderate abdominal pain. PRN Oxycodone used to manage pain, during night patient reported severe pain and requested IV Dilaudid. Patient unable to sleep awake most of the night. Bililary drain capped, dressing CDI. Vitals stable.Will continue plan of care.
[2022-04-07] MEDS ORDERED: AMLO10 PO (10:17)
[2022-04-07] MEDS ORDERED: AMOCLA875 PO (10:18)
[2022-04-07] MEDS ORDERED: OMEP20ER PO (10:19)
[2022-04-07] MEDS ORDERED: OXYC5 PO (10:21)
--- NOTE | 2022-04-07 11:46 | NUR ---
PT AWAKE, SITTING UP TO EOB BEFORE BREAKFAST. PLEASANT AND CO-OP WITH CARE. ASKING QUESTIONS REGARDING PLAN OF CARE AND D/C HOME. PAIN IMPROVING SOME FROM INITIAL BILARY STENT PLACEMENT A COUPLE OF DAYS AGO. DRAIN TO RUQ CAPPED WITH SECURE DRSG IN PLACE. DR GIBSON SOON IN TO SEE PT AND DISCUSS PAIN CONTROL AND DISCHARGE HOME. D/C ORDERS DISCUSSED WITH PT. MEDS FAXED TO [facility] PER PT REQUEST. PT CALLED FOR [place] HOME. PT ASSISTED OUT TO CAR VIA W/C WHEN ARRIVED. SCRIPT FOR OXYCODONE GIVEN TO PT WITH D/C PAPER WORK. PT TO F/U WITH DR DE LEON AND [facility] THIS WEEK.
[2022-04-10] MEDS ORDERED: CARBOXYMETHYLCE15 ML BOTHEYES (16:33)
[2022-04-10] MEDS ORDERED: VITAMIN D310 MC1 PO (16:33)
[2022-04-10] MEDS ORDERED: HYDR1TAB94 PO (16:34)
[2022-04-10] MEDS ORDERED: PRAM.125 PO (16:35)
[2022-04-10] MEDS ORDERED: NYAMYC15 G1 TOP (16:36)
[2022-04-10] MEDS ORDERED: NAPROXEN (16:37)
== END 2022-04-07 11:26 | disposition home or self-care (01) | DRG 435 ==
LOC: ER 02:36 → ERHOLD 02:37 → MEDS 20:03
PROVIDERS: Family Medicine; Hospitalist; Student in an Organized Health Care Education/Training Program; ADMIT Internal Medicine
PROC: 0F9930Z Drainage of Common Bile Duct with Drainage Device, Percutaneous Approach (ICD-10-PCS; principal; 2022-04-02)
PROC: BF15ZZA Fluoroscopy of Liver, Guidance (ICD-10-PCS; 2022-04-02)
PROC: 0F9430Z Drainage of Gallbladder with Drainage Device, Percutaneous Approach (ICD-10-PCS; 2022-04-04)
DX: C25.9 Malignant neoplasm of pancreas, unspecified (principal); K83.1 Obstruction of bile duct; D62 Acute posthemorrhagic anemia; J93.83 Other pneumothorax; I10 Essential (primary) hypertension; K21.9 Gastro-esophageal reflux disease without esophagitis; G47.30 Sleep apnea, unspecified; Z96.653 Presence of artificial knee joint, bilateral; Z96.649 Presence of unspecified artificial hip joint; E11.40 Type 2 diabetes mellitus with diabetic neuropathy, unspecified; E66.9 Obesity, unspecified; N40.0 Benign prostatic hyperplasia without lower urinary tract symptoms; G25.81 Restless legs syndrome; G47.00 Insomnia, unspecified; G89.4 Chronic pain syndrome; L73.9 Follicular disorder, unspecified; R00.1 Bradycardia, unspecified; Z88.2 Allergy status to sulfonamides; Z88.1 Allergy status to other antibiotic agents; Z88.8 Allergy status to other drugs, medicaments and biological substances; Z79.899 Other long term (current) drug therapy; Z98.890 Other specified postprocedural states; Z87.891 Personal history of nicotine dependence; Z99.81 Dependence on supplemental oxygen
CPT/HCPCS: 36415; 47534; 47540; 71046; 74150; 74177; 76937; 76998; 80053; 81001; 82248; 82272; 82947; 83735; 84100; 85014; 85018; 85025; 85027; 85610; 85730; 86850; 86900; 86901; 87077; 87086; 87186; 93005; 93010; 94660; 94760; 96361; 96374-59; 96375; 96376; 99152; 99153; 99285-25; A9270; C1729; C1769; C1874; C1876; C1894; C9113; G0378; J1170; J2250; J2270; J2405; J2543; J3010; J3480; J7030; J7050; Q9967

== ENCOUNTER 2022-04-11 11:04 | Day surgery (SDC) | payer MEDICARE, BC ==
[~2022-04-11] VITALS: Ht 172.7 cm; Wt 129.0 kg
[~2022-04-11 11:04] MED LIST changes: +AMOCLA875 PO; +CARBOXYMETHYLCE15 ML BOTHEYES; +NAPROXEN; +NYAMYC15 G1 TOP; +OMEP20ER PO; +OXYC5 PO; +PRAM.125 PO; +VITAMIN D310 MC1 PO; +ZINC15 PO
--- NOTE | 2022-04-11 13:10 | NUR ---
PT UPDATED ON WAIT STATUS. NADN. VSS.
--- NOTE | 2022-04-11 15:15 | NUR ---
PT TO AMBULATES TO RESTROOM AND THEN TO MATERIAL HANDLING CREW SUPERVISOR FOR PROCEDURE. BART
--- NOTE | 2022-04-11 16:24 | NUR ---
PT VERBALIZES UNDERSTANDING WRITTEN AND VERBAL INSTRUCTIONS. NADN. VSS. PT DRESSES SELF WITHOUT DIFF. PT IV DC'D. CATH INTACT. PRESSURE DSG APPLIED. PT DC TO HOME VIA S/O BY WC,.
== END 2022-04-11 16:25 | disposition home or self-care (01) ==
LOC: MHTC 11:04
DX: K83.1 Obstruction of bile duct (principal); K86.89 Other specified diseases of pancreas; I10 Essential (primary) hypertension; Z96.641 Presence of right artificial hip joint
CPT/HCPCS: 47531; 82947; C1769; J7040; Q9967

== ENCOUNTER 2022-04-25 08:33 | Inpatient (IN) | payer MEDICARE, BC, OTHER ==
[~2022-04-25] VITALS: Ht 172.7 cm; Wt 127.9 kg
[2022-04-25 09:47] LABS: BASOPHILS ABSOLUTE AUTO 0.02 K/mm3 (0.00-0.23); BASOPHILS PERCENT AUTO 0 % (0-2); EOSINOPHILS ABSOLUTE AUTO 0.17 K/mm3 (0.00-0.68); EOSINOPHILS PERCENT AUTO 2 % (0-6); Hemoglobin 10.7 g/dL (13.5-17.5); IMMATURE GRAN ABSOLUTE AUTO 0.03 K/mm3 (0.00-0.10); IMMATURE GRAN PERCENT AUTO 0 % (0-1); LYMPHOCYTES ABSOLUTE AUTO 1.11 K/mm3 (0.84-5.20); LYMPHOCYTES PERCENT AUTO 11 % (21-46); MONOCYTES PERCENT AUTO 7 % (4-13); Mean Corpuscular HGB 28.8 pg (26.0-34.0); Mean Corpuscular HGB Conc 32.4 g/dL (31.5-36.5); Mean Corpuscular Volume 89 fL (80-100); Mean Platelet Volume 10.3 fL (9.1-12.4); NEUTROPHILS ABSOLUTE AUTO 7.76 K/mm3 (1.96-9.15); NEUTROPHILS PERCENT AUTO 79 % (41-73); Platelet Count 227 K/mm3 (150-400); RDW Coefficient Variation 13.3 % (11.7-14.2); Red Blood Cell Count 3.72 M/mm3 (4.30-5.90); White Blood Cell Count 9.79 K/mm3 (4.00-11.30)
[2022-04-25 09:55] LABS: Albumin, Blood 2.8 g/dL (3.4-5.0); Albumin/Globulin Ratio 0.8 (0.8-1.8); Bilirubin, Direct 0.5 mg/dL (0.0-0.3); Bilirubin, Indirect 0.2 mg/dL (0.1-0.7); Bilirubin, Total 0.7 mg/dL (0.1-1.0); Bun/Creatinine Ratio 22.6 (12.0-20.0); Calcium, Blood 8.5 mg/dL (8.5-10.1); Creatinine, Blood 0.57 mg/dL (0.60-1.20); Globulin, Blood 3.5 g/dL (2.2-4.0); Magnesium, Blood 2.2 mg/dL (1.6-2.4); Potassium, Blood 3.5 mmol/L (3.5-5.5); Total Protein, Blood 6.3 g/dL (6.4-8.2)
[2022-04-26 04:10] LABS: BASOPHILS ABSOLUTE AUTO 0.03 K/mm3 (0.00-0.23); BASOPHILS PERCENT AUTO 0 % (0-2); EOSINOPHILS ABSOLUTE AUTO 0.23 K/mm3 (0.00-0.68); EOSINOPHILS PERCENT AUTO 2 % (0-6); Hematocrit 33.5 % (37.0-53.0); Hemoglobin 10.9 g/dL (13.5-17.5); IMMATURE GRAN ABSOLUTE AUTO 0.02 K/mm3 (0.00-0.10); IMMATURE GRAN PERCENT AUTO 0 % (0-1); LYMPHOCYTES ABSOLUTE AUTO 0.98 K/mm3 (0.84-5.20); LYMPHOCYTES PERCENT AUTO 10 % (21-46); MONOCYTES ABSOLUTE AUTO 0.55 K/mm3 (0.16-1.47); MONOCYTES PERCENT AUTO 6 % (4-13); Mean Corpuscular HGB 28.6 pg (26.0-34.0); Mean Corpuscular HGB Conc 32.5 g/dL (31.5-36.5); Mean Corpuscular Volume 88 fL (80-100); Mean Platelet Volume 10.1 fL (9.1-12.4); NEUTROPHILS ABSOLUTE AUTO 7.66 K/mm3 (1.96-9.15); NEUTROPHILS PERCENT AUTO 81 % (41-73); Platelet Count 246 K/mm3 (150-400); RDW Coefficient Variation 13.2 % (11.7-14.2); RDW Standard Deviation 42.7 fL (35.1-46.3); Red Blood Cell Count 3.81 M/mm3 (4.30-5.90); White Blood Cell Count 9.47 K/mm3 (4.00-11.30)
[2022-04-26 04:45] LABS: Albumin, Blood 3.1 g/dL (3.4-5.0); Albumin/Globulin Ratio 0.8 (0.8-1.8); Bilirubin, Total 0.9 mg/dL (0.1-1.0); Bun/Creatinine Ratio 27.9 (12.0-20.0); Calcium, Blood 8.4 mg/dL (8.5-10.1); Creatinine, Blood 0.54 mg/dL (0.60-1.20); Globulin, Blood 3.7 g/dL (2.2-4.0); Magnesium, Blood 2.4 mg/dL (1.6-2.4); Potassium, Blood 3.7 mmol/L (3.5-5.5); Total Protein, Blood 6.8 g/dL (6.4-8.2)
[2022-04-26 19:01] LABS: Influenza A, PCR NEGATIVE (NEGATIVE); Influenza B, PCR NEGATIVE (NEGATIVE); Resp Syncytial Virus, PCR NEGATIVE (NEGATIVE); SARS-Cov-2 (COVID-19) PCR, MMC NEGATIVE (NEGATIVE)
[2022-04-27 06:05] LABS: Anion Gap 7 mmol/L (6-16); Blood Urea Nitrogen 19 mg/dL (8-24); CO2, Blood 28 mmol/L (21-32); Calcium, Blood 8.6 mg/dL (8.5-10.1); Chloride, Blood 106 mmol/L (98-108); Creatinine, Blood 0.53 mg/dL (0.60-1.20); Glomerular Filtration Rate 108 (60-); Glucose, Blood 94 mg/dL (70-99); Magnesium, Blood 2.4 mg/dL (1.6-2.4); Phosphorus, Blood 3.3 mg/dL (2.5-4.9); Potassium, Blood 3.5 mmol/L (3.5-5.5); Sodium, Blood 141 mmol/L (136-145); Triglycerides 128 mg/dL (30-160)
[2022-04-28 07:46] LABS: Magnesium, Blood 2.2 mg/dL (1.6-2.4)
[2022-04-28 07:48] LABS: Bun/Creatinine Ratio 40.4 (12.0-20.0); Calcium, Blood 8.6 mg/dL (8.5-10.1); Creatinine, Blood 0.45 mg/dL (0.60-1.20); Phosphorus, Blood 2.8 mg/dL (2.5-4.9); Potassium, Blood 3.5 mmol/L (3.5-5.5)
== END 2022-04-29 02:00 | disposition short-term general hospital (02) | DRG 436 ==
LOC: ER 08:33 → SURS 12:03
PROVIDERS: Internal Medicine; Student in an Organized Health Care Education/Training Program; Surgery; ADMIT Family Medicine
PROC: 02HV33Z Insertion of Infusion Device into Superior Vena Cava, Percutaneous Approach (ICD-10-PCS; principal; 2022-04-25)
DX: C25.0 Malignant neoplasm of head of pancreas (principal); K31.1 Adult hypertrophic pyloric stenosis; Z68.41 Body mass index [BMI] 40.0-44.9, adult; Z51.5 Encounter for palliative care; Z20.822 Contact with and (suspected) exposure to COVID-19; E11.9 Type 2 diabetes mellitus without complications; K21.9 Gastro-esophageal reflux disease without esophagitis; G47.33 Obstructive sleep apnea (adult) (pediatric); I10 Essential (primary) hypertension; E66.01 Morbid (severe) obesity due to excess calories; N40.0 Benign prostatic hyperplasia without lower urinary tract symptoms; D63.0 Anemia in neoplastic disease; G25.81 Restless legs syndrome; G47.00 Insomnia, unspecified; G89.4 Chronic pain syndrome; Z96.642 Presence of left artificial hip joint; Z96.653 Presence of artificial knee joint, bilateral; Z98.84 Bariatric surgery status; Z98.890 Other specified postprocedural states; Z87.891 Personal history of nicotine dependence; Z88.1 Allergy status to other antibiotic agents; Z88.2 Allergy status to sulfonamides; Z79.899 Other long term (current) drug therapy
CPT/HCPCS: 0241U; 36415; 71045; 74177; 80048; 80053; 80076; 82947; 83605; 83690; 83735; 84100; 84478; 85025; 93005; 93010; 94660; 94762; 96374; 96375; 99285-25; A9270; C9113; J1170; J1650; J1885; J2270; J2997; J3411; J7030; Q9967

== ENCOUNTER 2022-05-24 07:20 | Day surgery (SDC) | payer MEDICARE, BC ==
[~2022-05-24] VITALS: Ht 172.7 cm; Wt 130.9 kg
[2022-05-24] MEDS ORDERED: Carvedilol12.5 MG PO (07:55)
--- NOTE | 2022-05-24 09:56 | NUR ---
05/24/22 0956 Kristina Jones ARRIVED AT 1053 TO TAKE PICTUE FOR PLACEMENT OF PORT-A-CATH. PT VOIDED 400 CLEAR YELLOW URINE.
== END 2022-05-24 11:15 | disposition home or self-care (01) ==
LOC: ORSCSDS 07:20
PROVIDERS: Surgery
PROC: B543ZZA Ultrasonography of Right Jugular Veins, Guidance (ICD-10-PCS; principal; 2022-05-24 08:30)
PROC: 05HM33Z Insertion of Infusion Device into Right Internal Jugular Vein, Percutaneous Approach (ICD-10-PCS; principal; 2022-05-24 08:30)
DX: C25.0 Malignant neoplasm of head of pancreas (principal); I10 Essential (primary) hypertension; Z87.891 Personal history of nicotine dependence; E66.01 Morbid (severe) obesity due to excess calories; Z68.41 Body mass index [BMI] 40.0-44.9, adult; R73.03 Prediabetes; Z79.899 Other long term (current) drug therapy; G47.33 Obstructive sleep apnea (adult) (pediatric)
CPT/HCPCS: 77001; 82947; C1788; J0690; J1642; J2250; J2704; J2795; J3010

== ENCOUNTER 2022-05-31 23:47 | Emergency (ER) | payer MEDICARE, BC ==
[~2022-05-31] VITALS: Ht 172.7 cm; Wt 129.3 kg
[~2022-05-31 23:47] MED LIST changes: +Carvedilol12.5 MG PO
[2022-06-01 00:27] LABS: Source, Urine Clean Catch
[2022-06-01 00:30] LABS: BASOPHILS ABSOLUTE AUTO 0.01 K/mm3 (0.00-0.23); BASOPHILS PERCENT AUTO 0 % (0-2); EOSINOPHILS ABSOLUTE AUTO 0.12 K/mm3 (0.00-0.68); EOSINOPHILS PERCENT AUTO 2 % (0-6); Hematocrit 26.2 % (37.0-53.0); Hemoglobin 8.6 g/dL (13.5-17.5); IMMATURE GRAN ABSOLUTE AUTO 0.02 K/mm3 (0.00-0.10); IMMATURE GRAN PERCENT AUTO 0 % (0-1); LYMPHOCYTES ABSOLUTE AUTO 0.42 K/mm3 (0.84-5.20); LYMPHOCYTES PERCENT AUTO 6 % (21-46); MONOCYTES ABSOLUTE AUTO 0.15 K/mm3 (0.16-1.47); MONOCYTES PERCENT AUTO 2 % (4-13); Mean Corpuscular HGB Conc 32.8 g/dL (31.5-36.5); Mean Corpuscular Volume 82 fL (80-100); Mean Platelet Volume 10.4 fL (9.1-12.4); NEUTROPHILS ABSOLUTE AUTO 6.16 K/mm3 (1.96-9.15); NEUTROPHILS PERCENT AUTO 90 % (41-73); Platelet Count 157 K/mm3 (150-400); RDW Coefficient Variation 13.6 % (11.7-14.2); Red Blood Cell Count 3.19 M/mm3 (4.30-5.90); White Blood Cell Count 6.88 K/mm3 (4.00-11.30)
[2022-06-01 00:34] LABS: Bilirubin, Urine Neg (Neg); Blood, Urine Neg (Neg); Glucose Qualitative, Urine Neg (Neg); Ketones, Urine Neg (Neg); Leukocyte Esterase, Urine Neg (Neg); Nitrite, Urine Neg (Neg); Protein, Urine Neg (Neg); Specific Gravity, Urine 1.005 (1.003-1.022); Urobilinogen, Urine NORM (Normal); pH, Urine 6.5 (5.0-8.0)
[2022-06-01 00:35] LABS: Appearance, Urine Clear (Clear); Color, Urine Yellow (P-Yellow)
[2022-06-01 00:48] LABS: Albumin, Blood 3.1 g/dL (3.4-5.0); Albumin/Globulin Ratio 0.9 (0.8-1.8); Bilirubin, Total 0.8 mg/dL (0.1-1.0); Bun/Creatinine Ratio 17.4 (12.0-20.0); Calcium, Blood 8.4 mg/dL (8.5-10.1); Creatinine, Blood 0.57 mg/dL (0.60-1.20); Globulin, Blood 3.3 g/dL (2.2-4.0); Potassium, Blood 3.8 mmol/L (3.5-5.5); Total Protein, Blood 6.4 g/dL (6.4-8.2)
[2022-06-01 02:02] LABS: Influenza A, PCR NEGATIVE (NEGATIVE); Influenza B, PCR NEGATIVE (NEGATIVE); Resp Syncytial Virus, PCR NEGATIVE (NEGATIVE); SARS-Cov-2 (COVID-19) PCR, MMC NEGATIVE (NEGATIVE)
== END 2022-06-01 03:15 | disposition home or self-care (01) ==
LOC: ER 23:47
PROVIDERS: Student in an Organized Health Care Education/Training Program
DX: R50.9 Fever, unspecified (principal); I10 Essential (primary) hypertension; K21.9 Gastro-esophageal reflux disease without esophagitis; Z88.1 Allergy status to other antibiotic agents; Z88.8 Allergy status to other drugs, medicaments and biological substances; Z79.899 Other long term (current) drug therapy; Z87.891 Personal history of nicotine dependence; Z20.822 Contact with and (suspected) exposure to COVID-19
CPT/HCPCS: 0241U; 36415; 71045; 80053; 81003; 83605; 85025; J0696; J1642

== ENCOUNTER → 2022-10-29 | Outpatient (CLI) | payer MEDICARE, BC, OTHER ==
[2022-10-29 16:17] LABS: BASOPHILS ABSOLUTE AUTO 0.02 K/mm3 (0.00-0.23); BASOPHILS PERCENT AUTO 1 % (0-2); EOSINOPHILS ABSOLUTE AUTO 0.03 K/mm3 (0.00-0.68); EOSINOPHILS PERCENT AUTO 1 % (0-6); Hematocrit 31.9 % (37.0-53.0); Hemoglobin 10.5 g/dL (13.5-17.5); IMMATURE GRAN ABSOLUTE AUTO 0.04 K/mm3 (0.00-0.10); IMMATURE GRAN PERCENT AUTO 1 % (0-1); LYMPHOCYTES ABSOLUTE AUTO 0.63 K/mm3 (0.84-5.20); LYMPHOCYTES PERCENT AUTO 20 % (21-46); MONOCYTES ABSOLUTE AUTO 0.45 K/mm3 (0.16-1.47); MONOCYTES PERCENT AUTO 15 % (4-13); Mean Corpuscular HGB 29.3 pg (26.0-34.0); Mean Corpuscular HGB Conc 32.9 g/dL (31.5-36.5); Mean Corpuscular Volume 89 fL (80-100); Mean Platelet Volume 12.1 fL (9.1-12.4); NEUTROPHILS ABSOLUTE AUTO 1.94 K/mm3 (1.96-9.15); NEUTROPHILS PERCENT AUTO 62 % (41-73); Platelet Count 90 K/mm3 (150-400); RDW Coefficient Variation 15.8 % (11.7-14.2); RDW Standard Deviation 50.9 fL (35.1-46.3); Red Blood Cell Count 3.58 M/mm3 (4.30-5.90); White Blood Cell Count 3.11 K/mm3 (4.00-11.30)
[2022-10-29 17:34] LABS: Percent Saturation 7.2 % (20.0-50.0)
== END | disposition home or self-care (01) ==
LOC: LAB SHORT 14:17 → LAB 14:17
PROVIDERS: Internal Medicine
DX: G25.81 Restless legs syndrome (principal)
CPT/HCPCS: 82728; 83540; 83550; 85025

== ENCOUNTER 2022-11-06 12:43 | Emergency (ER) | payer MEDICARE, BC, OTHER ==
[~2022-11-06] VITALS: Ht 172.7 cm; Wt 122.5 kg
[2022-11-06 13:48] LABS: BASOPHILS ABSOLUTE AUTO 0.01 K/mm3 (0.00-0.23); BASOPHILS PERCENT AUTO 0 % (0-2); EOSINOPHILS ABSOLUTE AUTO 0.06 K/mm3 (0.00-0.68); EOSINOPHILS PERCENT AUTO 1 % (0-6); Hemoglobin 11.2 g/dL (13.5-17.5); IMMATURE GRAN ABSOLUTE AUTO 0.01 K/mm3 (0.00-0.10); IMMATURE GRAN PERCENT AUTO 0 % (0-1); LYMPHOCYTES ABSOLUTE AUTO 0.69 K/mm3 (0.84-5.20); LYMPHOCYTES PERCENT AUTO 15 % (21-46); MONOCYTES PERCENT AUTO 16 % (4-13); Mean Corpuscular HGB 29.3 pg (26.0-34.0); Mean Corpuscular HGB Conc 32.9 g/dL (31.5-36.5); Mean Corpuscular Volume 89 fL (80-100); Mean Platelet Volume 11.2 fL (9.1-12.4); NEUTROPHILS ABSOLUTE AUTO 3.06 K/mm3 (1.96-9.15); NEUTROPHILS PERCENT AUTO 68 % (41-73); Platelet Count 100 K/mm3 (150-400); RDW Coefficient Variation 16.2 % (11.7-14.2); RDW Standard Deviation 52.5 fL (35.1-46.3); Red Blood Cell Count 3.82 M/mm3 (4.30-5.90); White Blood Cell Count 4.53 K/mm3 (4.00-11.30)
[2022-11-06 14:14] LABS: Albumin, Blood 3.2 g/dL (3.4-5.0); Albumin/Globulin Ratio 0.9 (0.8-1.8); Bilirubin, Total 0.6 mg/dL (0.1-1.0); Bun/Creatinine Ratio 15.6 (12.0-20.0); Calcium, Blood 8.9 mg/dL (8.5-10.1); Creatinine, Blood 0.51 mg/dL (0.60-1.20); Globulin, Blood 3.4 g/dL (2.2-4.0); Potassium, Blood 3.9 mmol/L (3.5-5.5); Total Protein, Blood 6.6 g/dL (6.4-8.2)
[2022-11-06] MEDS ORDERED: Vibramycin100 MG PO (15:24)
[2022-11-06 15:45] VITALS: BP 150/84
== END 2022-11-06 16:11 | disposition home or self-care (01) ==
LOC: ER 12:43
PROVIDERS: Physician Assistant
DX: L03.116 Cellulitis of left lower limb (principal); I10 Essential (primary) hypertension; Z85.07 Personal history of malignant neoplasm of pancreas; Z88.1 Allergy status to other antibiotic agents; Z88.2 Allergy status to sulfonamides; Z79.899 Other long term (current) drug therapy
CPT/HCPCS: 80053; 85025; 93970; A9270; J0690

== ENCOUNTER → 2022-12-24 | Outpatient (CLI) | payer MEDICARE, BC, OTHER ==
[~2022-12-24] MED LIST changes: +Vibramycin100 MG PO
[2022-12-24 12:03] LABS: BASOPHILS ABSOLUTE AUTO 0.03 K/mm3 (0.00-0.23); BASOPHILS PERCENT AUTO 1 % (0-2); EOSINOPHILS ABSOLUTE AUTO 0.06 K/mm3 (0.00-0.68); EOSINOPHILS PERCENT AUTO 2 % (0-6); Hematocrit 36.5 % (37.0-53.0); Hemoglobin 12.2 g/dL (13.5-17.5); IMMATURE GRAN ABSOLUTE AUTO 0.02 K/mm3 (0.00-0.10); IMMATURE GRAN PERCENT AUTO 1 % (0-1); LYMPHOCYTES ABSOLUTE AUTO 0.72 K/mm3 (0.84-5.20); LYMPHOCYTES PERCENT AUTO 18 % (21-46); MONOCYTES ABSOLUTE AUTO 0.38 K/mm3 (0.16-1.47); MONOCYTES PERCENT AUTO 10 % (4-13); Mean Corpuscular HGB 30.7 pg (26.0-34.0); Mean Corpuscular HGB Conc 33.4 g/dL (31.5-36.5); Mean Corpuscular Volume 92 fL (80-100); NEUTROPHILS ABSOLUTE AUTO 2.74 K/mm3 (1.96-9.15); NEUTROPHILS PERCENT AUTO 69 % (41-73); Platelet Count 97 K/mm3 (150-400); RDW Coefficient Variation 15.6 % (11.7-14.2); Red Blood Cell Count 3.97 M/mm3 (4.30-5.90); White Blood Cell Count 3.95 K/mm3 (4.00-11.30)
[2022-12-24 17:44] LABS: Very Low Density Lipoprot Chol 21 mg/dL (6-32)
[2022-12-24 17:54] LABS: Alanine Aminotransfer (ALT/SGP 23 U/L (12-78); Albumin, Blood 3.4 g/dL (3.4-5.0); Albumin/Globulin Ratio 1.1 (0.8-1.8); Alk Phos 99 U/L (50-136); Anion Gap 7 mmol/L (6-16); Aspartate Aminotrans (AST/SGOT 28 U/L (12-37); Bilirubin, Total 0.5 mg/dL (0.1-1.0); Blood Urea Nitrogen 10 mg/dL (8-24); Bun/Creatinine Ratio 18.8 (12.0-20.0); CHOL/HDL RATIO 2.4; CO2, Blood 27 mmol/L (21-32); Calcium, Blood 8.9 mg/dL (8.5-10.1); Chloride, Blood 105 mmol/L (98-108); Cholesterol 135 mg/dL (50-200); Creatinine, Blood 0.53 mg/dL (0.60-1.20); Glomerular Filtration Rate 108 (60-); Glucose, Blood 109 mg/dL (70-99); HDL Cholesterol 57 mg/dL (>39); Low Density Lipoprotein Chol 57 mg/dL (0-110); Potassium, Blood 3.8 mmol/L (3.5-5.5); Sodium, Blood 139 mmol/L (136-145); Total Protein, Blood 6.4 g/dL (6.4-8.2); Triglycerides 106 mg/dL (30-160)
[2022-12-25 15:10] LABS: FERRITIN 793 ng/mL (30-400); IRON BIND.CAP.(TIBC) 315 ug/dL (250-450); IRON SATURATION 19 % (15-55); IRON, SERUM 61 ug/dL (38-169); UIBC 254 ug/dL (111-343)
== END | disposition home or self-care (01) ==
LOC: LAB 10:58 → LAB SHORT 10:58
PROVIDERS: Internal Medicine
DX: G25.81 Restless legs syndrome (principal); Z13.220 Encounter for screening for lipoid disorders; Z13.29 Encounter for screening for other suspected endocrine disorder
CPT/HCPCS: 80053; 80061; 82728; 83540; 83550; 84443; 85025

== ENCOUNTER 2023-05-10 12:36 | Emergency (ER) | payer MEDICARE, BC, OTHER ==
[~2023-05-10] VITALS: Ht 172.7 cm; Wt 119.8 kg
[2023-05-10 14:03] LABS: Albumin, Blood 2.5 g/dL (3.4-5.0); Albumin/Globulin Ratio 0.7 (0.8-1.8); Bilirubin, Total 1.5 mg/dL (0.1-1.0); Bun/Creatinine Ratio 15.8 (12.0-20.0); Calcium, Blood 8.1 mg/dL (8.5-10.1); Creatinine, Blood 0.57 mg/dL (0.60-1.20); Globulin, Blood 3.4 g/dL (2.2-4.0); Potassium, Blood 3.8 mmol/L (3.5-5.5); Total Protein, Blood 5.9 g/dL (6.4-8.2)
[2023-05-10 14:42] LABS: BASOPHILS ABSOLUTE AUTO 0.01 K/mm3 (0.00-0.23); BASOPHILS PERCENT AUTO 0 % (0-2); EOSINOPHILS ABSOLUTE AUTO 0.02 K/mm3 (0.00-0.68); EOSINOPHILS PERCENT AUTO 0 % (0-6); Hematocrit 28.3 % (37.0-53.0); Hemoglobin 9.4 g/dL (13.5-17.5); IMMATURE GRAN ABSOLUTE AUTO 0.06 K/mm3 (0.00-0.10); IMMATURE GRAN PERCENT AUTO 1 % (0-1); LYMPHOCYTES PERCENT AUTO 3 % (21-46); MONOCYTES ABSOLUTE AUTO 0.15 K/mm3 (0.16-1.47); MONOCYTES PERCENT AUTO 2 % (4-13); Mean Corpuscular HGB 32.5 pg (26.0-34.0); Mean Corpuscular HGB Conc 33.2 g/dL (31.5-36.5); Mean Corpuscular Volume 98 fL (80-100); Mean Platelet Volume 12.7 fL (9.1-12.4); NEUTROPHILS ABSOLUTE AUTO 6.35 K/mm3 (1.96-9.15); NEUTROPHILS PERCENT AUTO 94 % (41-73); Platelet Count 54 K/mm3 (150-400); RDW Coefficient Variation 13.5 % (11.7-14.2); RDW Standard Deviation 47.8 fL (35.1-46.3); Red Blood Cell Count 2.89 M/mm3 (4.30-5.90); White Blood Cell Count 6.79 K/mm3 (4.00-11.30)
[2023-05-10] MEDS ORDERED: Keflex500 MG PO (18:01)
[2023-05-10 18:09] VITALS: BP 135/81
== END 2023-05-10 18:06 | disposition home or self-care (01) ==
LOC: ER 12:36
PROVIDERS: Physician Assistant
DX: L03.116 Cellulitis of left lower limb (principal); L03.115 Cellulitis of right lower limb; C25.9 Malignant neoplasm of pancreas, unspecified; C78.7 Secondary malignant neoplasm of liver and intrahepatic bile duct; I10 Essential (primary) hypertension; E78.5 Hyperlipidemia, unspecified; Z88.1 Allergy status to other antibiotic agents; Z88.2 Allergy status to sulfonamides; Z79.899 Other long term (current) drug therapy
CPT/HCPCS: 80053; 85025; 99283; A9270

== ENCOUNTER 2023-06-08 00:01 | Inpatient (IN) | payer MEDICARE, BC ==
[~2023-06-08] VITALS: Ht 172.7 cm; Wt 119.0 kg
[~2023-06-08 00:01] MED LIST changes: +Keflex500 MG PO
[2023-06-08 00:28] LABS: BASOPHILS ABSOLUTE AUTO 0.01 K/mm3 (0.00-0.23); BASOPHILS PERCENT AUTO 0 % (0-2); EOSINOPHILS PERCENT AUTO 0 % (0-6); Hemoglobin 10.1 g/dL (13.5-17.5); IMMATURE GRAN ABSOLUTE AUTO 0.06 K/mm3 (0.00-0.10); IMMATURE GRAN PERCENT AUTO 1 % (0-1); LYMPHOCYTES ABSOLUTE AUTO 0.13 K/mm3 (0.84-5.20); LYMPHOCYTES PERCENT AUTO 1 % (21-46); MONOCYTES ABSOLUTE AUTO 1.08 K/mm3 (0.16-1.47); MONOCYTES PERCENT AUTO 10 % (4-13); Mean Corpuscular HGB 33.8 pg (26.0-34.0); Mean Corpuscular HGB Conc 33.7 g/dL (31.5-36.5); Mean Corpuscular Volume 100 fL (80-100); Mean Platelet Volume 11.8 fL (9.1-12.4); NEUTROPHILS PERCENT AUTO 89 % (41-73); Platelet Count 158 K/mm3 (150-400); RDW Coefficient Variation 17.3 % (11.7-14.2); RDW Standard Deviation 59.2 fL (35.1-46.3); Red Blood Cell Count 2.99 M/mm3 (4.30-5.90); White Blood Cell Count 11.28 K/mm3 (4.00-11.30)
[2023-06-08 00:39] LABS: Albumin, Blood 2.5 g/dL (3.4-5.0); Albumin/Globulin Ratio 0.8 (0.8-1.8); Bilirubin, Total 4.5 mg/dL (0.1-1.0); Calcium, Blood 7.9 mg/dL (8.5-10.1); Creatinine, Blood 0.64 mg/dL (0.60-1.20); Globulin, Blood 3.2 g/dL (2.2-4.0); Potassium, Blood 4.6 mmol/L (3.5-5.5); Total Protein, Blood 5.7 g/dL (6.4-8.2)
[2023-06-08 00:45] LABS: International Normalized Ratio 1.2; Prothrombin Time Results 12.5 Sec (9.7-11.5)
[2023-06-08 00:58] LABS: Base Excess Venous 3.1 mmol/L; Bicarbonate Venous 26.8 mmol/L (24.0-30.0); PCO2 Venous 40.7 mmHg (38-42); pH Blood Venous 7.44 (7.34-7.37)
[2023-06-08 11:28] VITALS: BP 113/71
[2023-06-08] MEDS ORDERED: OXYC10ER PO (12:35)
[2023-06-08] MEDS ORDERED: DURAGESIC1 EAC1 TD (12:37)
[2023-06-08 15:30] VITALS: BP 111/83
[2023-06-08 16:38] LABS: Anti-Xa UFH, PHA Monitoring <0.10 IU/mL; International Normalized Ratio 1.33; Prothrombin Time Results 13.7 Sec (9.7-11.5)
[2023-06-08 19:22] VITALS: BP 114/75
--- NOTE | 2023-06-08 19:24 | NUR ---
SHIFT SUMMARY PT HAS DONE WELL SINCE ARRIVAL TO UNIT AT APROX 1145. PT C/O GENERALIZED ABD PAIN-FENTANYL PATCH AND PO MEDS STARTED PER HOME DOSES PER EMAR. PT TOLERATING HEPATIC DIET W/NO N/V. PT REQUESTS FULL CODE SATUS, MESSAGE LEFT FOR DR LARES TO CALL TO UPDATE CODE STATUS. PT ALSO REQUESTING PALIATIVE CARE TO DISCUSS CODE STATUS. HEPARIN GTT STARTED PER EMAR FOR NEW AFIB UPON ARRIVAL TO ER, TELE IN PLACE RATE 110-120. PLAN NPO AT MIDNIGHT FOR PROCEDURE WITH DR DE LEON FOR BILARY STENT OBSTUCTION. PT INDEPENDENT IN ROOM. AMBULATING TO BATHROOM USING CANE.
--- NOTE | 2023-06-08 23:24 | NUR ---
PHYSICIAN COMMUNICATION AT SHIFT CHANGE PT INFORMED DAY & DIVINA NURSE HE WANTED TO BE A FULL CODE & NOT A DNR. DISCUSSED CODE STATUS CHANGE WITH DR LARES & IT WAS CHANGED FOR THE TIME BEING.
[2023-06-09 04:50] LABS: BASOPHILS ABSOLUTE AUTO 0.01 K/mm3 (0.00-0.23); BASOPHILS PERCENT AUTO 0 % (0-2); EOSINOPHILS ABSOLUTE AUTO 0.05 K/mm3 (0.00-0.68); EOSINOPHILS PERCENT AUTO 1 % (0-6); Hematocrit 29.8 % (37.0-53.0); Hemoglobin 9.8 g/dL (13.5-17.5); IMMATURE GRAN ABSOLUTE AUTO 0.05 K/mm3 (0.00-0.10); IMMATURE GRAN PERCENT AUTO 1 % (0-1); LYMPHOCYTES ABSOLUTE AUTO 0.51 K/mm3 (0.84-5.20); LYMPHOCYTES PERCENT AUTO 7 % (21-46); MONOCYTES ABSOLUTE AUTO 1.02 K/mm3 (0.16-1.47); MONOCYTES PERCENT AUTO 13 % (4-13); Mean Corpuscular HGB 33.6 pg (26.0-34.0); Mean Corpuscular HGB Conc 32.9 g/dL (31.5-36.5); Mean Corpuscular Volume 102 fL (80-100); NEUTROPHILS ABSOLUTE AUTO 6.01 K/mm3 (1.96-9.15); NEUTROPHILS PERCENT AUTO 79 % (41-73); Platelet Count 157 K/mm3 (150-400); RDW Coefficient Variation 17.8 % (11.7-14.2); RDW Standard Deviation 64.2 fL (35.1-46.3); Red Blood Cell Count 2.92 M/mm3 (4.30-5.90); White Blood Cell Count 7.65 K/mm3 (4.00-11.30)
[2023-06-09 05:08] LABS: International Normalized Ratio 1.23; Prothrombin Time Results 12.8 Sec (9.7-11.5)
[2023-06-09 05:31] LABS: Albumin, Blood 2.3 g/dL (3.4-5.0); Albumin/Globulin Ratio 0.7 (0.8-1.8); Bilirubin, Total 4.7 mg/dL (0.1-1.0); Bun/Creatinine Ratio 21.7 (12.0-20.0); Calcium, Blood 7.9 mg/dL (8.5-10.1); Creatinine, Blood 0.6 mg/dL (0.60-1.20); Globulin, Blood 3.1 g/dL (2.2-4.0); Magnesium, Blood 2.3 mg/dL (1.6-2.4); Phosphorus, Blood 3.2 mg/dL (2.5-4.9); Potassium, Blood 3.7 mmol/L (3.5-5.5); Total Protein, Blood 5.4 g/dL (6.4-8.2)
[2023-06-09 05:41] VITALS: BP 135/91
--- NOTE | 2023-06-09 05:51 | NUR ---
SHIFT SUMMARY AOX4. VSS. TELE AFIB @110-123 WHILE RESTING, WHEN PT UP WALKING IN RM HR INCREASES TO 140-150'S. HAS BEEN NPO SINCE MIDNIGHT FOR STENT REVISION. NO SYNCOPAL EPISODES THIS SHIFT. HAD LRG BM, VOIDED MULT TIMES. HEP DRIP RUNNING 17ML/HR. CALL LIGHT IN REACH, WILL MONITOR.
[2023-06-09 07:04] VITALS: BP 123/89
[2023-06-09 14:27] VITALS: BP 134/111
[2023-06-09 14:28] VITALS: BP 123/85
--- NOTE | 2023-06-09 19:07 | NUR ---
SHIFT SUMMARY PT A&OX4, VSS/RA/CPAP-NOC/TELE: AFIB 105 BPM, LUCINA PO, VOIDING/BM, AMB W/CANE, PAIN MANAGED, IV HEPARIN PER PHARMACY IN RFA AND ABX PER EMAR IN LW. REPORT TO INEZ GANN.
[2023-06-09 19:20] VITALS: BP 120/72
[2023-06-10 02:43] LABS: BASOPHILS ABSOLUTE AUTO 0.01 K/mm3 (0.00-0.23); BASOPHILS PERCENT AUTO 0 % (0-2); EOSINOPHILS ABSOLUTE AUTO 0.06 K/mm3 (0.00-0.68); EOSINOPHILS PERCENT AUTO 1 % (0-6); Hematocrit 28.5 % (37.0-53.0); Hemoglobin 9.3 g/dL (13.5-17.5); IMMATURE GRAN ABSOLUTE AUTO 0.03 K/mm3 (0.00-0.10); IMMATURE GRAN PERCENT AUTO 1 % (0-1); LYMPHOCYTES ABSOLUTE AUTO 0.37 K/mm3 (0.84-5.20); LYMPHOCYTES PERCENT AUTO 7 % (21-46); MONOCYTES ABSOLUTE AUTO 0.79 K/mm3 (0.16-1.47); MONOCYTES PERCENT AUTO 15 % (4-13); Mean Corpuscular HGB 33.6 pg (26.0-34.0); Mean Corpuscular HGB Conc 32.6 g/dL (31.5-36.5); Mean Corpuscular Volume 103 fL (80-100); NEUTROPHILS ABSOLUTE AUTO 3.87 K/mm3 (1.96-9.15); NEUTROPHILS PERCENT AUTO 75 % (41-73); Platelet Count 156 K/mm3 (150-400); RDW Coefficient Variation 17.9 % (11.7-14.2); RDW Standard Deviation 66.8 fL (35.1-46.3); Red Blood Cell Count 2.77 M/mm3 (4.30-5.90); White Blood Cell Count 5.13 K/mm3 (4.00-11.30)
[2023-06-10 03:15] LABS: Bun/Creatinine Ratio 19.7 (12.0-20.0); Calcium, Blood 7.8 mg/dL (8.5-10.1); Creatinine, Blood 0.61 mg/dL (0.60-1.20); Potassium, Blood 3.8 mmol/L (3.5-5.5)
[2023-06-10 03:44] VITALS: BP 152/108
--- NOTE | 2023-06-10 04:16 | NUR ---
SHIFT SUMMARY NO ACUTE CHANGES. TELE REMAINS AFIB IN THE 100S. HEPARIN GTT INFUSING PER ORDERS. X1 BOLUS DOSE OF HEPARIN + RATE INCREASE PER PHARMACY. 1 SBA WITH CANE WHEN OOB. NPO SINCE MIDNIGHT FOR PROCEDURE TODAY. IV ABX PER ORDERS. OXYCODONE FOR PAIN MANAGEMENT. USES CALL LIGHT APPROPRIATELY.
[2023-06-10 07:11] VITALS: BP 134/92
[2023-06-10 10:35] LABS: Albumin, Blood 2.2 g/dL (3.4-5.0); Albumin/Globulin Ratio 0.7 (0.8-1.8); Bilirubin, Direct 2.7 mg/dL (0.0-0.3); Bilirubin, Indirect 0.4 mg/dL (0.1-0.7); Bilirubin, Total 3.1 mg/dL (0.1-1.0); Globulin, Blood 3.1 g/dL (2.2-4.0); Total Protein, Blood 5.3 g/dL (6.4-8.2)
[2023-06-10 14:51] VITALS: BP 139/93
--- NOTE | 2023-06-10 18:31 | NUR ---
SHIFT SUMMARY PT A&OX4, VSS/RA/CPAP-NOC/TELE: AFIB 106 BPM, LUCINA PO, VOIDING, AMB W/CANE, PAIN MANAGED, IV HEPARIN PER PHARMACY IN RFA AND ABX PER EMAR IN LW. PLAN FOR NPO MIDNIGHT FOR PROCEDURE FRIDAY AM. WILL REPORT TO ONCOMING NOC RN.
[2023-06-10 19:07] VITALS: BP 137/86
[2023-06-11 04:20] VITALS: BP 149/99
--- NOTE | 2023-06-11 04:51 | NUR ---
SHIFT SUMMARY NO ACUTE CHANGES. TELE REMAINS AFIB IN THE 90S/100S. HEPARIN GTT + ABX INFUSING PER ORDERS. INDEP WITH CANE WHEN OOB. NPO SINCE MIDNIGHT FOR PROCEDURE TODAY. OXYCODONE FOR PAIN MANAGEMENT. USES CALL LIGHT APPROPRIATELY.
[2023-06-11 05:03] LABS: BASOPHILS ABSOLUTE AUTO 0.01 K/mm3 (0.00-0.23); BASOPHILS PERCENT AUTO 0 % (0-2); EOSINOPHILS ABSOLUTE AUTO 0.06 K/mm3 (0.00-0.68); EOSINOPHILS PERCENT AUTO 1 % (0-6); Hematocrit 28.6 % (37.0-53.0); Hemoglobin 9.1 g/dL (13.5-17.5); IMMATURE GRAN ABSOLUTE AUTO 0.02 K/mm3 (0.00-0.10); IMMATURE GRAN PERCENT AUTO 0 % (0-1); LYMPHOCYTES ABSOLUTE AUTO 0.65 K/mm3 (0.84-5.20); LYMPHOCYTES PERCENT AUTO 14 % (21-46); MONOCYTES ABSOLUTE AUTO 0.86 K/mm3 (0.16-1.47); MONOCYTES PERCENT AUTO 19 % (4-13); Mean Corpuscular HGB 32.4 pg (26.0-34.0); Mean Corpuscular HGB Conc 31.8 g/dL (31.5-36.5); Mean Corpuscular Volume 102 fL (80-100); Mean Platelet Volume 11.7 fL (9.1-12.4); NEUTROPHILS ABSOLUTE AUTO 2.98 K/mm3 (1.96-9.15); NEUTROPHILS PERCENT AUTO 65 % (41-73); Platelet Count 167 K/mm3 (150-400); RDW Coefficient Variation 17.5 % (11.7-14.2); RDW Standard Deviation 64.7 fL (35.1-46.3); Red Blood Cell Count 2.81 M/mm3 (4.30-5.90); White Blood Cell Count 4.58 K/mm3 (4.00-11.30)
[2023-06-11 05:35] LABS: Albumin, Blood 2.3 g/dL (3.4-5.0); Albumin/Globulin Ratio 0.8 (0.8-1.8); Bilirubin, Total 2.3 mg/dL (0.1-1.0); Bun/Creatinine Ratio 14.9 (12.0-20.0); Calcium, Blood 8.1 mg/dL (8.5-10.1); Creatinine, Blood 0.6 mg/dL (0.60-1.20); Potassium, Blood 3.7 mmol/L (3.5-5.5); Total Protein, Blood 5.3 g/dL (6.4-8.2)
[2023-06-11 07:25] VITALS: BP 144/96
--- NOTE | 2023-06-11 09:29 | NUR ---
PT HEPARIN GTT STOPPED AT 0904 FOR PT TO GO FOR PROCEDURE. TELE NOTIFIED THAT PT WOULD BE OFF UNIT WELL.
[2023-06-11] MEDS ORDERED: FAMO20 PO (15:17)
[2023-06-11] MEDS ORDERED: AMOCLA875 PO (15:18)
[2023-06-11] MEDS ORDERED: ERGO400 PO (15:20)
[2023-06-11] MEDS ORDERED: ELIQUIS5 M2 PO (15:27)
--- NOTE | 2023-06-11 16:01 | NUR ---
DISCHARGE PT DISCHARGED HOME AT APROX 1600. PT GIVEN WRITTEN AND VERBAL DISCHARGE INSTRUCTIONS AND VERBALIZED UNDERSTANDING OF THESE INSTRUCTIONS. IV X'S 2 REMOVED. NEW RX'S FAXED TO [facility] ON [address]
== END 2023-06-11 16:15 | disposition home or self-care (01) | DRG 919 ==
LOC: ER 00:01 → SURS 09:03
PROVIDERS: Internal Medicine; Student in an Organized Health Care Education/Training Program; ADMIT Family Medicine
DX: T85.79XA Infection and inflammatory reaction due to other internal prosthetic devices, implants and grafts, initial encounter (principal); A41.9 Sepsis, unspecified organism; J90 Pleural effusion, not elsewhere classified; C25.9 Malignant neoplasm of pancreas, unspecified; R18.0 Malignant ascites; T85.520A Displacement of bile duct prosthesis, initial encounter; I10 Essential (primary) hypertension; K21.9 Gastro-esophageal reflux disease without esophagitis; G47.33 Obstructive sleep apnea (adult) (pediatric); N40.0 Benign prostatic hyperplasia without lower urinary tract symptoms; E78.5 Hyperlipidemia, unspecified; E66.9 Obesity, unspecified; Y73.1 Therapeutic (nonsurgical) and rehabilitative gastroenterology and urology devices associated with adverse incidents; I48.91 Unspecified atrial fibrillation; R55 Syncope and collapse; Z68.38 Body mass index [BMI] 38.0-38.9, adult
CPT/HCPCS: 36415; 71046; 71260; 74177; 76998; 80048; 80053; 80076; 82803; 83605; 83735; 83880; 84100; 84484; 85025; 85520; 85610; 85730; 93005; 93010; 93306; 96361; 96365; 96375; 96376; 99152; 99285-25; A9270; J1170; J1644; J2250; J2270; J2405; J2543; J3010; J7030; Q9967

== ENCOUNTER 2023-06-27 15:44 | Emergency (ER) | payer MEDICARE, BC ==
[~2023-06-27] VITALS: Ht 172.7 cm; Wt 124.7 kg
[~2023-06-27 15:44] MED LIST changes: +DURAGESIC1 EAC1 TD; +ELIQUIS5 M2 PO; +ERGO400 PO; +FAMO20 PO; +OXYC10ER PO
[2023-06-27 16:59] LABS: BASOPHILS ABSOLUTE AUTO 0.01 K/mm3 (0.00-0.23); BASOPHILS PERCENT AUTO 0 % (0-2); EOSINOPHILS ABSOLUTE AUTO 0.01 K/mm3 (0.00-0.68); EOSINOPHILS PERCENT AUTO 0 % (0-6); Hematocrit 30.8 % (37.0-53.0); Hemoglobin 10.1 g/dL (13.5-17.5); IMMATURE GRAN ABSOLUTE AUTO 0.03 K/mm3 (0.00-0.10); IMMATURE GRAN PERCENT AUTO 0 % (0-1); LYMPHOCYTES ABSOLUTE AUTO 0.09 K/mm3 (0.84-5.20); LYMPHOCYTES PERCENT AUTO 1 % (21-46); MONOCYTES ABSOLUTE AUTO 0.51 K/mm3 (0.16-1.47); MONOCYTES PERCENT AUTO 6 % (4-13); Mean Corpuscular HGB Conc 32.8 g/dL (31.5-36.5); Mean Corpuscular Volume 101 fL (80-100); Mean Platelet Volume 11.6 fL (9.1-12.4); NEUTROPHILS ABSOLUTE AUTO 8.59 K/mm3 (1.96-9.15); NEUTROPHILS PERCENT AUTO 93 % (41-73); Platelet Count 95 K/mm3 (150-400); RDW Coefficient Variation 15.1 % (11.7-14.2); RDW Standard Deviation 56.2 fL (35.1-46.3); Red Blood Cell Count 3.06 M/mm3 (4.30-5.90); White Blood Cell Count 9.24 K/mm3 (4.00-11.30)
[2023-06-27 17:29] LABS: Albumin, Blood 2.2 g/dL (3.4-5.0); Albumin/Globulin Ratio 0.7 (0.8-1.8); Bilirubin, Total 3.9 mg/dL (0.1-1.0); Bun/Creatinine Ratio 26.9 (12.0-20.0); Creatinine, Blood 0.52 mg/dL (0.60-1.20); Globulin, Blood 3.1 g/dL (2.2-4.0); Potassium, Blood 3.8 mmol/L (3.5-5.5); Total Protein, Blood 5.3 g/dL (6.4-8.2)
[2023-06-27 18:00] LABS: Influenza A, PCR NEGATIVE (NEGATIVE); Influenza B, PCR NEGATIVE (NEGATIVE); Resp Syncytial Virus, PCR NEGATIVE (NEGATIVE); SARS-Cov-2 (COVID-19) PCR, MMC NEGATIVE (NEGATIVE)
[2023-06-27 19:10] LABS: Source, Urine Voided
[2023-06-27 19:19] LABS: Appearance, Urine Clear (Clear); Blood, Urine Neg (Neg); Color, Urine Amber (P-Yellow); Glucose Qualitative, Urine Neg (Neg); Ketones, Urine Neg (Neg); Leukocyte Esterase, Urine 1+ (Neg); Nitrite, Urine Neg (Neg); Protein, Urine 1+ (Neg); Urobilinogen, Urine 4+ (Normal)
[2023-06-27 19:24] LABS: Bilirubin, Urine 2+ (Neg)
[2023-06-27 19:25] LABS: Bacteria Rare /hpf; Mucus Light (0-Heavy); Red Blood Cells, Urine 0-2 /hpf (0-2)
[2023-06-27 19:26] LABS: Hyaline Casts 0-2 /lpf (0-2); Squamous Epithelial Cells Few /hpf (Few)
[2023-06-27] MEDS ORDERED: CEFD300 PO (22:05)
[2023-06-27 22:15] VITALS: BP 103/64
== END 2023-06-27 23:00 | disposition home or self-care (01) ==
LOC: ER 15:44
PROVIDERS: Emergency Medicine
DX: I48.91 Unspecified atrial fibrillation (principal); I95.9 Hypotension, unspecified; J18.9 Pneumonia, unspecified organism; Z87.891 Personal history of nicotine dependence; I10 Essential (primary) hypertension; K21.9 Gastro-esophageal reflux disease without esophagitis; G47.30 Sleep apnea, unspecified; N40.0 Benign prostatic hyperplasia without lower urinary tract symptoms; E78.5 Hyperlipidemia, unspecified; E66.9 Obesity, unspecified; Z68.41 Body mass index [BMI] 40.0-44.9, adult; Z79.01 Long term (current) use of anticoagulants; Z79.899 Other long term (current) drug therapy; Z88.1 Allergy status to other antibiotic agents; Z88.2 Allergy status to sulfonamides
CPT/HCPCS: 0241U; 71045; 80053; 81001; 83605; 83880; 84484; 85025; 93005; 93010; 96361; 96365; 96375; 99285-25; A9270; J0696; J7030

== ENCOUNTER 2023-07-01 10:10 | Emergency (ER) | payer MEDICARE, BC ==
[~2023-07-01] VITALS: Ht 172.7 cm; Wt 117.0 kg
[~2023-07-01 10:10] MED LIST changes: +CEFD300 PO
[2023-07-01] MEDS ORDERED: NS 1,000 ML IV SCH (10:20)
[2023-07-01] MEDS ORDERED: Acetaminophen 325 MG TABLET PO ONE (10:20)
[2023-07-01 10:31] LABS: BASOPHILS ABSOLUTE AUTO 0.01 K/mm3 (0.00-0.23); BASOPHILS PERCENT AUTO 0 % (0-2); EOSINOPHILS PERCENT AUTO 0 % (0-6); IMMATURE GRAN ABSOLUTE AUTO 0.03 K/mm3 (0.00-0.10); IMMATURE GRAN PERCENT AUTO 1 % (0-1); LYMPHOCYTES ABSOLUTE AUTO 0.17 K/mm3 (0.84-5.20); LYMPHOCYTES PERCENT AUTO 3 % (21-46); MONOCYTES ABSOLUTE AUTO 0.48 K/mm3 (0.16-1.47); MONOCYTES PERCENT AUTO 9 % (4-13); Mean Corpuscular HGB 32.7 pg (26.0-34.0); Mean Corpuscular HGB Conc 33.3 g/dL (31.5-36.5); Mean Corpuscular Volume 98 fL (80-100); Mean Platelet Volume 12.3 fL (9.1-12.4); NEUTROPHILS ABSOLUTE AUTO 4.74 K/mm3 (1.96-9.15); NEUTROPHILS PERCENT AUTO 87 % (41-73); Platelet Count 125 K/mm3 (150-400); RDW Coefficient Variation 15.6 % (11.7-14.2); RDW Standard Deviation 55.7 fL (35.1-46.3); Red Blood Cell Count 3.06 M/mm3 (4.30-5.90); White Blood Cell Count 5.43 K/mm3 (4.00-11.30)
[2023-07-01] MEDS ORDERED: CefTRIAXone Sodium 1,000 MG in NS 50 ML IV ONE (10:40)
[2023-07-01 10:53] LABS: Albumin, Blood 2.2 g/dL (3.4-5.0); Albumin/Globulin Ratio 0.7 (0.8-1.8); Bilirubin, Total 5.8 mg/dL (0.1-1.0); Bun/Creatinine Ratio 17.1 (12.0-20.0); Calcium, Blood 8.1 mg/dL (8.5-10.1); Creatinine, Blood 0.64 mg/dL (0.60-1.20); Globulin, Blood 3.2 g/dL (2.2-4.0); Potassium, Blood 4.3 mmol/L (3.5-5.5); Total Protein, Blood 5.4 g/dL (6.4-8.2)
[2023-07-01 11:41] LABS: Influenza A Negative (NEGATIVE); Influenza B Negative (NEGATIVE)
[2023-07-01 11:53] LABS: SARS-Cov-2 (COVID-19) PCR, MMC NEGATIVE (NEGATIVE)
[2023-07-01] MEDS ORDERED: Pramipexole DI-HCL 0.125 MG Tab PO ONE (12:40)
[2023-07-01] MEDS ORDERED: OxyCODONE HCL 20 MG TABCR PO ONE (13:35)
--- NOTE | 2023-07-01 13:54 | NUR ---
Upon responding to a request by patient's RN on behalf of the patient's spouse, I visited with the patient. We discuss his philosophies about , dying and the afterlife. We discuss what is important and menaingful at the end of life and ways run this last leg of his life in a way that would most be beneficial to himself and his family. We talk about what having peace and what that looks like for him. I provide theological insights, therapeutic listening and prayer. Patient responed well and showed signs of greater peace. I will cotninue to remain available to patient and family.
[2023-07-01 14:34] VITALS: BP 105/88
[2023-07-01] MEDS ORDERED: OxyCODONE HCL 5 MG TAB PO ONE (15:15)
--- NOTE | 2023-07-01 15:17 | NUR ---
DISCUSSED PATIENT WITH . MET WITH PATIENT AND FAMILY IN THE ROOM. CARY HAS BEEN HAVING BOUTS OF CONFUSION WHICH ARE INCREASING IN FREQUENCY AND DURATION. THIS IS WHAT LED FAMILY INTO CALLING AN AMBULANCE. FAMILY HAS AN APT TOMORROW AT 10AM TO ESTABLISH HOSPICE FOR CARY. WE DISCUSSED WHAT THAT PROCESS WILL LOOK LIKE. PATIENT REPORTS HE IS FEELING BETTER. HE IS STILL PAINFUL, BEDSIDE RN TREATED HIM FOR PAIN WHILE I WAS THERE. DISCUSSED CASE WITH BRANDON GRANT SHE WAS WORKING ON GETTING OXYGEN FOR CARY AT HOME.
== END 2023-07-01 16:10 | disposition home or self-care (01) ==
LOC: ER 10:10
PROVIDERS: Emergency Medicine
DX: A41.9 Sepsis, unspecified organism (principal); J18.9 Pneumonia, unspecified organism; I48.91 Unspecified atrial fibrillation; J96.91 Respiratory failure, unspecified with hypoxia; D64.9 Anemia, unspecified; D69.6 Thrombocytopenia, unspecified; Z66 Do not resuscitate; C25.9 Malignant neoplasm of pancreas, unspecified; I10 Essential (primary) hypertension; K21.9 Gastro-esophageal reflux disease without esophagitis; G47.30 Sleep apnea, unspecified; N40.0 Benign prostatic hyperplasia without lower urinary tract symptoms; E78.5 Hyperlipidemia, unspecified; E66.9 Obesity, unspecified; Z11.52 Encounter for screening for COVID-19; Z88.1 Allergy status to other antibiotic agents; Z88.2 Allergy status to sulfonamides; Z79.899 Other long term (current) drug therapy; Z79.01 Long term (current) use of anticoagulants; Z87.891 Personal history of nicotine dependence; Z68.39 Body mass index [BMI] 39.0-39.9, adult
CPT/HCPCS: 36415; 71045; 80053; 83605; 84145; 85025; 87040; 87804; 87807; 93005; 93010; 96365; 96367; 99285-25; A9270; J0696; J7030; U0002